=== PATIENT | male | born 1960 | race Caucasian/White ===

== ENCOUNTER 2020-05-19 17:44 | Inpatient (IN) | payer BC, SELFPAY ==
[2020-05-19 18:15] LABS: #Lymphocytes 0.7 thou/uL (1.20-3.40); #Monocytes 0.7 thou/uL (0.11-0.59); #Neutrophils 4.8 thou/uL (1.40-6.50); %Basophils 0.1 % (0.0-1.0); %Eosinophils 0.5 % (0.0-10.0); %Lymphocytes 11.2 % (21.0-51.0); %Monocytes 10.5 % (0.0-10.0); %Neutrophils 77.7 % (42.0-75.0); Hemoglobin 14.8 g/dL (14.0-18.0); Mean Corpuscular HGB CONC 34.4 g/dL (32.0-36.0); Mean Corpuscular Hemoglobin 33.6 pg (27.0-31.0); Mean Corpuscular Volume 97.7 fL (78.0-98.0); Mean Platelet Volume 8.3 fL (7.4-10.4); Platelet Count 129 thou/uL (130-400); RBC Distribution Width 12.6 % (11.5-14.5); Red Blood Cell (RBC) Count 4.41 mill/uL (4.70-6.10); White Blood Cell (WBC) Count 6.2 thou/uL (4.8-10.8)
--- NOTE | 2020-05-19 18:23 | RAD ---
RADIOGRAPH CHEST 1 VIEW: DATE: 05/19/2020 HISTORY: 59-year-old male with dyspnea FINDINGS: There are no airspace densities, pulmonary edema, pneumothorax, or cardiomegaly. The lateral costophr enic angles are sharp. IMPRESSION: No acute cardiopulmonary findings.
[2020-05-19 18:37] LABS: ALT (SGPT) 38 U/L (8-55); AST (SGOT) 54 U/L (5-34); Albumin 3.5 g/dL (3.4-4.8); Alkaline Phosphatase 91 U/L (40-110); Anion Gap 16 mmol/L (10-20); BUN (Urea Nitrogen) 5 mg/dL (8.4-25.7); Bilirubin, Total 1.3 mg/dL (0.2-1.2); Calc. Creatinine Clearance 0 mL/min (70-130); Carbon Dioxide 29 mmol/L (23-31); Chloride 84 mmol/L (98-107); Globulin 3.6 g/dL (2.4-3.5); Glucose 98 mg/dL (80-115); Protein, Total 7.1 g/dL (5.8-8.1); Sodium 125 mmol/L (136-145)
[2020-05-19] MEDS ORDERED: Ondansetron ODT 4 MG TAB PO PRN (19:59)
[2020-05-19] MEDS ORDERED: HYDROcodone/Acetaminophen 7.5/325 mg Tablet PO PRN (19:59)
[2020-05-19] MEDS ORDERED: Bisacodyl 5 MG TAB PO PRN (19:59)
[2020-05-19] MEDS ORDERED: Furosemide 40 MG/4 ML VIAL SLOW IVP SCH (20:15)
--- NOTE | 2020-05-19 20:22 | PDOC.HHP ---
Hospitalist HPI leg swelling and SOB History of Present Illness: 59 yr old male with pmhx of atrial fib , HTN , non adherence with therapy and follow up with PCP and previously on ELiquis but has not taken since over 1 year after losing insurance and job , presented to ER today after bring bough by sister for increasing swelling and discoloration of lower legs but more over LLE . He states symptoms being ongoing for months , he admit to exertional dysonea. He denies being on multiple meds and evaluated by cardiology in the past . He describe regular daily beer intake , drinks multiple cans and unable to tell ho much , he also drinks lots of water . He recalls negative cardiac cath many years ago . No chest pain , no hx of alcohol related seizures, no recent falls , no fever or chills . 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 hand digit FHx: Mother with COPD Social: lives alone , unemployed since last year -functional at baseline - more of sedentary lifestyle now -daily alcohol drinker -tobacco use - 1 pack /day Hospitalist HPI ROS Constitutional: reports: weakness Eyes: denies: pain, vision change, conjunctivae inflammation, eyelid inflammation, redness, other ENT: denies: ear pain, ear discharge, nose pain, nose discharge, nose congestion, mouth pain, mouth swelling, throat pain, throat swelling, other Respiratory: reports: cough, shortness of breath, SOB with excertion Cardiovascular: reports: palpitations, orthopnea Gastrointestinal: denies: nausea, vomiting, abdominal pain, diarrhea, constipation, melena, hematochezia, other Genitourinary: denies: dysuria, frequency, incontinence, hematuria, retention, other Musculoskeletal: reports: leg pain Neurological: denies: weakness, numbness, incoordination, change in speech, confusion, seizures, other Hospitalist Exam General - other findings: obese male , calm , NAD Eye: PERRL, anicteric sclera ENT: normocephalic atraumatic, no oropharyngeal lesions, moist mucosa Neck: supple, symmetric, no JVD Heart: no murmur, normal peripheral pulses, irregular Respiratory: no rales, normal chest expansion, normal percussion, wheezes Gastrointestinal: soft, non-tender, non-distended, no hepatomegaly Extremities: no cyanosis, 1+ LE edema Extremities - other findings: right > left , darkish hue to LE Skin: normal turgor Neurological: cranial nerve grossly intact, normal sensation to touch, no focal deficits Musculoskeletal: normal tone, normal strength, no muscle wasting Psychiatric: normal affect, normal behavior, oriented to time Hospitalist Results Result Diagrams: 05/19/20 17:58 05/19/20 17:58 Lab results: Laboratory Last Values WBC 6.2 thou/uL (4.8-10.8) 05/19/20 17:58 RBC 4.41 mill/uL (4.70-6.10) L 05/19/20 17:58 Hgb 14.8 g/dL (14.0-18.0) 05/19/20 17:58 Hct 43.1 % (42.0-52.0) 05/19/20 17:58 MCV 97.7 fL (78.0-98.0) 05/19/20 17:58 MCH 33.6 pg (27.0-31.0) H 05/19/20 17:58 MCHC 34.4 g/dL (32.0-36.0) 05/19/20 17:58 RDW 12.6 % (11.5-14.5) 05/19/20 17:58 Plt Count 129 thou/uL (130-400) L 05/19/20 17:58 MPV 8.3 fL (7.4-10.4) 05/19/20 17:58 Neutrophils % 77.7 % (42.0-75.0) H 05/19/20 17:58 Lymphocytes % 11.2 % (21.0-51.0) L 05/19/20 17:58 Monocytes % 10.5 % (0.0-10.0) H 05/19/20 17:58 Eosinophils % 0.5 % (0.0-10.0) 05/19/20 17:58 Basophils % 0.1 % (0.0-1.0) 05/19/20 17:58 Neutrophils # 4.8 thou/uL (1.40-6.50) 05/19/20 17:58 Lymphocytes # 0.7 thou/uL (1.20-3.40) L 05/19/20 17:58 Monocytes # 0.7 thou/uL (0.11-0.59) H 05/19/20 17:58 Eosinophils # 0.0 thou/uL (0.0-0.7) 05/19/20 17:58 Basophils # 0.0 thou/uL (0.0-0.2) 05/19/20 17:58 Sodium 125 mmol/L (136-145) L 05/19/20 17:58 Potassium 4.0 mmol/L (3.5-5.1) 05/19/20 17:58 Chloride 84 mmol/L (98-107) L 05/19/20 17:58 Carbon Dioxide 29 mmol/L (23-31) 05/19/20 17:58 Anion Gap 16 mmol/L (10-20) 05/19/20 17:58 BUN 5 mg/dL (8.4-25.7) L 05/19/20 17:58 Creatinine 0.75 mg/dL (0.7-1.3) 05/19/20 17:58 Estimated GFR (MDRD) Greater than 90 05/19/20 17:58 Glucose 98 mg/dL (80-115) 05/19/20 17:58 Calcium 9.0 mg/dL (7.8-10.44) 05/19/20 17:58 Total Bilirubin 1.3 mg/dL (0.2-1.2) H 05/19/20 17:58 AST 54 U/L (5-34) H 05/19/20 17:58 ALT 38 U/L (8-55) 05/19/20 17:58 Alkaline Phosphatase 91 U/L (40-110) 05/19/20 17:58 Troponin I 0.015 ng/mL (< 0.028) 05/19/20 17:58 B-Natriuretic Peptide 389.5 pg/mL (0-100) H 05/19/20 17:58 Serum Total Protein 7.1 g/dL (5.8-8.1) 05/19/20 17:58 Albumin 3.5 g/dL (3.4-4.8) 05/19/20 17:58 Globulin 3.6 g/dL (2.4-3.5) H 05/19/20 17:58 Albumin/Globulin Ratio 1.0 g/dL (1.2-2.2) L 05/19/20 17:58 Hospitalist H&P A/P (1) COPD (chronic obstructive pulmonary disease) with acute bronchitis Code(s): J44.0 - CHR OBSTRUCTIVE PULMON DISEASE WITH (ACUTE) LOWER RESP INFCT; J20.9 - ACUTE BRONCHITIS, UNSPECIFIED Status: Acute (2) Leg edema Code(s): R60.0 - LOCALIZED EDEMA Status: Acute (3) Left leg cellulitis Code(s): L03.116 - CELLULITIS OF LEFT LOWER LIMB Status: Acute (4) Tobacco abuse Code(s): Z72.0 - TOBACCO USE Status: Acute (5) Alcohol abuse Code(s): F10.10 - ALCOHOL ABUSE, UNCOMPLICATED Status: Acute (6) Atrial fibrillation Code(s): I48.91 - UNSPECIFIED ATRIAL FIBRILLATION Status: Acute Plan: # Atrial fib - with RVR- chronic -will restart Eliquis an -start Cardizem and coreg - follow mg and TSH -possible of coverage of Eliquis discussed with patient and fmialy but sister s torres they will be able to cover the meds - place in tele for now # COPD- start duonebs , steroids and empricla abx -tobbaco cessation advised - start nicotine patch # Alcohol use history - monitor for withdrawal -start librium scheduled # Hyponatrmeia - obtain urine osm/sodium/serum osm -will consult renal team - start NS , salt tabs - dose lasix to increase free water excretion - may be due to hypotonic fluid loading from alcohol use # DVT prop - obtain LE doppler to r/o DVT - start eliquis # Advance directive -full code
--- NOTE | 2020-05-19 21:35 | ULT ---
ULTRASOUND DOPPLER DUPLEX VENOUS BILATERAL LOWER EXTREMITIES: DATE: 05/19/2020 HISTORY: 59-year-old male with bilateral lower extremity swelling TECHNIQUE: Grayscale, color-flow, and spectral analysis, of major veins of bilateral lower extremities. FINDINGS: There is demonstration of blood flow with normal compressibility, of the bilateral common femoral, pr ofunda femoral, greater saphenous, femoral, popliteal, and posterior tibial, veins. There is soft tissue edema in the bilateral calves. IMPRESSION: 1. No deep venous thrombosis of bilateral lower extremities. 2. Bilateral leg edema
[2020-05-19] MEDS ORDERED: Famotidine 20 MG TAB ONE (21:37)
[2020-05-19] MEDS ORDERED: cefTRIAXone\\ROCEPHIN 1 GM VIAL ONE (21:38)
[2020-05-19] MEDS ORDERED: Furosemide 40 MG/4 ML VIAL ONE (21:38)
[2020-05-19] MEDS: Bupropion 150 MG SR TAB PO SCH (22:04)
[2020-05-19] MEDS: Apixaban 5 MG TAB PO SCH (22:04)
[2020-05-19] MEDS: Nicotine 21 MG PATCH TD SCH (22:04)
[2020-05-19] MEDS: Carvedilol 6.25 MG TAB PO SCH (22:05)
[2020-05-19] MEDS: cefTRIAXone\\ROCEPHIN 1 GM in Sodium Chloride 0.9% 100 ML IVPB SCH (22:05)
[2020-05-19] MEDS: Famotidine 20 MG TAB PO SCH (22:05)
[2020-05-19] MEDS: Sodium Chloride 1 GM TAB PO SCH (22:06)
[2020-05-20 02:58] LABS: SARS-CoV-2 PCR by NAA Not Detected (NotDetected)
[2020-05-20] MEDS ORDERED: Magnesium 2 GM/50 ML BAG (IN WATER) ONE ×2 (03:47→04:43)
[2020-05-20] MEDS: Magnesium 2 GM/50 ML 2 GM in Premix Bag 1 BAG IVPB SCH ×2 (04:09→04:49)
[2020-05-20 04:38] LABS: Band 2 % (5-11); Eosinophils 1 % (0-10); Hemoglobin 14.1 g/dL (14.0-18.0); Lymphocytes 8 % (21-51); MDiff Complete? YES; Mean Corpuscular HGB CONC 33.9 g/dL (32.0-36.0); Mean Corpuscular Hemoglobin 33.2 pg (27.0-31.0); Mean Platelet Volume 8.1 fL (7.4-10.4); Monocytes 13 % (0-10); Neutrophil 75 % (42-75); Platelet Count 131 thou/uL (130-400); Platelet Morphology Comment Appears Adequate; RBC Distribution Width 12.6 % (11.5-14.5); Reactive Lymphocytes 1 % (0-10); Red Blood Cell (RBC) Count 4.25 mill/uL (4.70-6.10); White Blood Cell (WBC) Count 6.2 thou/uL (4.8-10.8)
[2020-05-20 04:50] LABS: Anion Gap 15 mmol/L (10-20); BUN (Urea Nitrogen) 6 mg/dL (8.4-25.7); Calc. Creatinine Clearance 0 mL/min (70-130); Calcium 8.8 mg/dL (7.8-10.44); Carbon Dioxide 27 mmol/L (23-31); Chloride 87 mmol/L (98-107); Glucose 104 mg/dL (80-115); Potassium 3.4 mmol/L (3.5-5.1); Sodium 126 mmol/L (136-145)
[2020-05-20] MEDS ORDERED: Aspirin Chewable 81 MG TAB ONE (08:47)
[2020-05-20] MEDS ORDERED: Famotidine 20 MG TAB ONE (08:47)
[2020-05-20] MEDS ORDERED: predniSONE 20 MG TAB ONE (08:50)
[2020-05-20] MEDS ORDERED: Furosemide 40 MG TAB ONE (08:50)
[2020-05-20] MEDS: Furosemide 20 MG TAB PO SCH ×2 (09:10→17:06)
[2020-05-20] MEDS: Famotidine 20 MG TAB PO SCH ×2 (09:10→21:55)
[2020-05-20] MEDS: predniSONE 20 MG TAB PO SCH (09:10)
[2020-05-20] MEDS: Aspirin Chewable 81 MG TAB PO SCH (09:10)
[2020-05-20] MEDS: Carvedilol 6.25 MG TAB PO SCH (09:43)
[2020-05-20] MEDS: Apixaban 5 MG TAB PO SCH ×2 (09:43→21:54)
[2020-05-20] MEDS: Bupropion 150 MG SR TAB PO SCH ×2 (09:43)
[2020-05-20] MEDS: Sodium Chloride 1 GM TAB PO SCH ×3 (09:44→21:55)
--- NOTE | 2020-05-20 14:52 | CON ---
DATE OF CONSULTATION: HISTORY OF PRESENT ILLNESS: Stewart Chatterjee is a 59 year old white male, who has been seen and treated by Dr. Bonilla in the past. Apparently one year ago, he was found to be in atrial fibrillation and underwent electrical cardioversion. He then lost his insurance after he was laid off and takes his medications very irregularly. He was on flecainide, so I assumed that he had normal left ventricular function in the past. He comes to the emergency room complaining of increased shortness of breath, feels increased peripheral edema. He denies any palpitations or chest discomfort. PAST MEDICAL HISTORY: Hypertension. No history of diabetes or hypercholesterolemia. MEDICATIONS: The medicines that he was taking were, 1. Metoprolol 100 daily. 2. Eliquis 5 mg b.i.d. 3. Amlodipine 10 mg daily. 4. Flecainide 100 mg b.i.d. When asked about each medicine, he takes the metoprolol once every several days, the Eliquis only one daily, amlodipine once every several days, and the flecainide once every 2 or 3 days. ALLERGIES: NONE TO MEDICATIONS. OPERATIONS: Amputation of the left 4th digit from his hand, history of ORIF after broken left hand. SOCIAL HISTORY: Continues to smoke one pack per day. He drinks, but is very evasive about how much he drinks. FAMILY HISTORY: Unremarkable. REVIEW OF SYSTEMS: Otherwise unremarkable. PHYSICAL EXAMINATION: VITAL SIGNS: Blood pressure 124/95; pulse of 101, irregularly irregular. At the time of presentation, his blood pressure was up to 156/118. HEENT: PERRL. NECK: Supple. CHEST: Reveals expiratory wheezing. CARDIOVASCULAR: S1 and S2 normal without any S3, S4, or murmurs. The heart is irregularly irregular. ABDOMEN: Obese. Normal bowel sounds. No tenderness. EXTREMITIES: Revealed 2+ pretibial edema with stasis changes. NEUROLOGIC: Grossly intact. LABORATORY DATA: EKG revealed atrial fibrillation with rate of 131 per minute and right bundle-branch block. Chest x-ray revealed no acute findings. Lower extremity venous ultrasound reveals no evidence of DVT. Hemoglobin 14.1, hematocrit 41.7, white count 6200, platelets 131,000. Sodium 126, potassium 3.4, chloride 87, BUN 6, creatinine 0.65. BNP 467.5. Troponin I is normal. TSH is normal. IMPRESSION: 1. Atrial fibrillation with fast ventricular response. 2. History of cardioversion for atrial fibrillation approximately one year ago. He was on flecainide, but only takes this once every several days and I assume that he had normal left ventricular function in the past. 3. Congestive heart failure, definite diastolic component. With his chronic rapid ventricular response, his left ventricular systolic function needs to be reassessed. 4. Hypertension. 5. Smoker. 6. Noncompliance with medications. PLAN: The patient will be resumed on Eliquis 5mg b.i.d. He will be placed placed on carvedilol for better rate control and diuretics. Echocardiogram will be performed to reassess left ventricular function. The patient's fluid needs to be limited to 1500 mL per day. We will continue to follow the patient with you. Job ID: [id number] MTDD
[2020-05-20 15:39] LABS: Bacteria/HPF None Seen HPF (None Seen); Bilirubin Negative (Negative); Blood, Urine Negative (Negative); Clarity Clear (Clear); Glucose, Urine (Dipstick) Normal (Negative); Ketone, Urine 10 mg/dL (Negative); Leukocyte Negative Leu/uL (Negative); Nitrite Negative (Negative); Protein, Urine (Dipstick) 50 mg/dL (Neg-Trace); RBC/HPF 0-3 HPF (0-3); Specific Gravity, Urine 1.008 (1.002-1.036); Squamous Epithelial None Seen HPF (0-3); Urobilinogen Greater than 12 mg/dL (Less than 2); WBC/HPF 0-3 HPF (0-3)
--- NOTE | 2020-05-20 18:48 | CON ---
DATE OF CONSULTATION: CONSULTING PHYSICIAN: Mino Coburn MD. REQUESTING PHYSICIAN: Dr. Cardona. REASON FOR CONSULTATION: Hyponatremia. IMPRESSION: 1. Hyponatremia. This is likely dilutional hyponatremia in the context of congestive heart failure/hypervolemia. However, I cannot completely rule out SIADH and other potential hyponatremic causes. 2. Congestive heart failure exacerbation. PLAN: Urine chemistry to evaluate what type of hyponatremia and treat accordingly. Therefore, now we will stay with fluid restriction and diuretic management for CHF symptoms. HISTORY OF PRESENT ILLNESS: History is that of 59-year-old gentleman with history of atrial fibrillation, hypertension, who presented to the hospital with worsening swelling and discoloration of the legs and shortness of breath. The patient has been diagnosed with CHF exacerbation. The patient does admit to drinking which raises the possibility of beer potomania as a component of this hyponatremia. PAST MEDICAL HISTORY: Significant for atrial fibrillation, hypertension, possible congestive heart failure. MEDICATIONS: Reviewed as documented on [employer]. SOCIAL HISTORY: Unemployed, living alone, daily alcohol use. REVIEW OF SYSTEMS: As documented in the body of history. All other systems reviewed and found not to be significantly related to present illness. PHYSICAL EXAMINATION: GENERAL: The patient noted with the following vital signs; afebrile, temperature 97.5, pulse 105, respiratory rate of 15, O2 saturation of 97%, blood pressure 147/91. HEENT: Unremarkable. CARDIOVASCULAR SYSTEM: First and second heart sounds were heard. RESPIRATORY SYSTEM: Clear to auscultation. DIGESTIVE SYSTEM: Revealed an obese abdomen. EXTREMITIES: Showed peripheral edema. SKIN: Shows some discoloration in the lower extremity. SUMMARY: A 59-year-old gentleman who presented here with worsening body swelling and shortness of breath, noted to be hyponatremic, likely in the context of dilutional hyponatremia, either from CHF or from beer potomania, still SIADH has not been ruled out. Job ID: [id number]
--- NOTE | 2020-05-20 19:33 | PDOC.HOSPP ---
- Subjective Encounter Date: 05/20/20 Encounter Time: 19:30 Subjective: f/u for A-fib RVR/COPD/CHF and medical non-compliance treated with Lasix/Coreg/Eliquis. - Objective Vital Signs & Weight: Vital Signs (12 hours) Temp Pulse Resp BP BP Pulse Ox 05/20/20 15:50 97 05/20/20 15:38 97.5 F L 105 H 15 147/91 H 97 05/20/20 09:43 124/95 H 05/20/20 08:13 101 H 18 96 Weight Weight 314 lb 11.2 oz Result Diagrams: 05/20/20 04:21 05/20/20 04:21 Additional Labs: Laboratory Tests 05/19/20 05/19/20 05/19/20 17:56 17:58 17:58 Plt Count Sodium 125 L Magnesium Total Bilirubin 1.3 H B-Natriuretic Peptide 389.5 H TSH 3rd Generation 1.3970 SARS-CoV-2 RNA (JR) 05/19/20 05/19/20 05/19/20 17:58 20:39 22:15 Plt Count 129 L Sodium Magnesium 1.5 L Total Bilirubin B-Natriuretic Peptide TSH 3rd Generation SARS-CoV-2 RNA (JR) Not Detected 05/20/20 04:21 Plt Count Sodium Magnesium Total Bilirubin B-Natriuretic Peptide 467.5 H TSH 3rd Generation SARS-CoV-2 RNA (JR) Radiology Reviewed by me: Yes (PCXR - no acute changes) EKG Reviewed by me: Yes (Tele - A-fib in 115's) Hospitalist ROS - Medication Medications: Active Medications Generic Name Dose Route Start Last Admin Trade Name Freq PRN Reason Stop Dose Admin Albuterol/Ipratropium 3 ml 05/20/20 01:00 05/20/20 14:39 Ipratropium/Albuterol Sulfate 3 Ml Neb NEB 3 ml [id number] BAIRON Administration Apixaban 5 mg 05/19/20 21:00 05/20/20 09:43 Apixaban 5 Mg Tab PO 5 mg BID BAIRON Administration Aspirin 81 mg 05/20/20 09:00 05/20/20 09:10 Aspirin Chewable 81 Mg Tab PO 81 mg DAILY BAIRON Administration Bupropion HCl 150 mg 05/20/20 09:00 05/20/20 09:43 Bupropion 150 Mg Sr Tab PO 05/23/20 09:01 150 mg DAILY BAIRON Administration Carvedilol 6.25 mg 05/19/20 21:00 05/20/20 09:43 Carvedilol 6.25 Mg Tab PO 6.25 mg BID BAIRON Administration Chlordiazepoxide HCl 10 mg 05/19/20 21:00 05/20/20 17:06 Chlordiazepoxide Hcl 10 Mg Cap PO 10 mg TID BAIRON Administration Famotidine 20 mg 05/19/20 21:00 05/20/20 09:10 Famotidine 20 Mg Tab PO 20 mg BID BAIRON Administration Furosemide 40 mg 05/20/20 09:00 05/20/20 17:06 Furosemide 20 Mg Tab PO 40 mg 0900,1400 BAIRON Administration Ceftriaxone Sodium 1 gm/ 100 mls @ 200 mls/hr 05/19/20 21:00 05/19/20 22:05 Sodium Chloride IVPB 100 mls Q24HR BAIRON Administration Nicotine 21 mg 05/19/20 20:00 05/19/20 22:04 Nicotine 21 Mg Patch TD 21 mg Q24HR BAIRON Administration Prednisone 40 mg 05/20/20 09:00 05/20/20 09:10 Prednisone 20 Mg Tab PO 40 mg DAILY BAIRON Administration Sodium Chloride 2 gm 05/19/20 21:00 05/20/20 17:06 Sodium Chloride 1 Gm Tab PO 2 gm TID BAIRON Administration Hospitalist Exam Vitals: Vital Signs (12 hours) Temp Pulse Resp BP BP Pulse Ox 05/20/20 15:50 97 05/20/20 15:38 97.5 F L 105 H 15 147/91 H 97 05/20/20 09:43 124/95 H 05/20/20 08:13 101 H 18 96 Weight Weight 314 lb 11.2 oz General Appearance: NAD, awake alert Eye: PERRL, anicteric sclera ENT: normocephalic atraumatic, no oropharyngeal lesions Neck: supple, symmetric, no JVD, no thyromegaly, no lymphadenopathy Heart: no gallops, no rubs, normal peripheral pulses, irregular Respiratory: no tachypnea, rhonchi, wheezes Respiratory - other findings: diminished in bases Gastrointestinal: soft, non-tender, non-distended, normal bowel sounds, no palpable masses Gastrointestinal - other findings: obese Extremities: no cyanosis, no clubbing, 2+ LE edema Skin: normal turgor Neurological: cranial nerve grossly intact, no new deficit Musculoskeletal: normal tone, generalized weakness Psychiatric: normal affect, A&O x 3 Hosp A/P (1) Atrial fibrillation with RVR Code(s): I48.91 - UNSPECIFIED ATRIAL FIBRILLATION Status: Acute Plan: Rate variable, increase Coreg 12.5mg BID, Eliquis, Echo pending (2) CHF (congestive heart failure) Code(s): I50.9 - HEART FAILURE, UNSPECIFIED Status: Acute Qualifiers: Heart failure type: unspecified Plan: 2D echo pending, continue Lasix 40mg IV BID (3) Hyponatremia Code(s): E87.1 - HYPO-OSMOLALITY AND HYPONATREMIA Status: Acute Plan: Likely due to chronic ETOH abuse in combination with volume overload, IV Lasix, serial monitoring, appreciate Nephrology assistance (4) COPD exacerbation Code(s): J44.1 - CHRONIC OBSTRUCTIVE PULMONARY DISEASE W (ACUTE) EXACERBATION Status: Acute Plan: Continue Prednisone/Duonebs/Rocephin (5) Alcohol abuse Code(s): F10.10 - ALCOHOL ABUSE, UNCOMPLICATED Status: Chronic Plan: Ativan/Librium with ASE protocol, add MVI/Thiamine/Folate - Plan continue antibiotics, PT/OT, social psychologist, respiratory therapy, out of bed/ambulate Continue pulmonary support Continue Lasix IV Continue Rocephin/Prednisone/Rocephin Increase Coreg 12.5mg BID Continue Eliquis 2D echo pending AM lab: BMP, Trop
[2020-05-20] MEDS ORDERED: Carvedilol 6.25 MG TAB PO SCH (21:00)
[2020-05-20] MEDS: Nicotine 21 MG PATCH TD SCH (21:53)
[2020-05-20] MEDS: cefTRIAXone\\ROCEPHIN 1 GM in Sodium Chloride 0.9% 100 ML IVPB SCH (21:54)
[2020-05-21 05:47] LABS: Anion Gap 15 mmol/L (10-20); BUN (Urea Nitrogen) 10 mg/dL (8.4-25.7); Calc. Creatinine Clearance 199 mL/min (70-130); Calcium 8.5 mg/dL (7.8-10.44); Carbon Dioxide 29 mmol/L (23-31); Chloride 88 mmol/L (98-107); Glucose 93 mg/dL (80-115); Potassium 3.3 mmol/L (3.5-5.1); Sodium 129 mmol/L (136-145)
[2020-05-21 05:53] LABS: Troponin I 0.014 ng/mL (< 0.028)
[2020-05-21] MEDS: Multivitamin W/ Minerals 1 TAB PO SCH (07:53)
[2020-05-21] MEDS: Aspirin Chewable 81 MG TAB PO SCH (07:53)
[2020-05-21] MEDS: Apixaban 5 MG TAB PO SCH ×2 (07:53→21:56)
[2020-05-21] MEDS: Sodium Chloride 1 GM TAB PO SCH ×2 (07:53→14:53)
[2020-05-21] MEDS: Folic Acid 1 MG TAB PO SCH (07:54)
[2020-05-21] MEDS: predniSONE 20 MG TAB PO SCH (07:54)
[2020-05-21] MEDS: Bupropion 150 MG SR TAB PO SCH (07:54)
[2020-05-21] MEDS: Carvedilol 6.25 MG TAB PO SCH ×2 (07:54→16:24)
[2020-05-21] MEDS: Furosemide 20 MG TAB PO SCH ×2 (07:56→14:53)
[2020-05-21] MEDS: Famotidine 20 MG TAB PO SCH ×2 (07:56→21:56)
[2020-05-21] MEDS: Thiamine 100 MG TAB PO SCH (07:56)
[2020-05-21] MEDS ORDERED: FLU VACC QS2020-21(6MOS UP)/PF 60 MCG/0.5 ML SYRINGE IM ONE (09:00)
--- NOTE | 2020-05-21 10:14 | PDOC.HOSPP ---
- Subjective Encounter Date: 05/21/20 Encounter Time: 10:05 Subjective: f/u for A-fib RVR/CHF/medical non-compliance receiving Coreg/Eliquis. Overall feels better and less SOB. - Objective Vital Signs & Weight: Vital Signs (12 hours) Temp Pulse Resp BP Pulse Ox 05/21/20 08:00 94 L 05/21/20 07:47 98.0 F 103 H 20 122/78 94 L 05/21/20 06:59 102 H 14 05/21/20 03:50 98.4 F 116 H 20 104/67 93 L 05/21/20 00:00 122 H 05/20/20 23:19 95 Weight Weight 311 lb 3.2 oz I&O: 05/20/20 05/21/20 05/22/20 06:59 06:59 06:59 Intake Total 480 Balance 480 Result Diagrams: 05/20/20 04:21 05/21/20 05:01 Additional Labs: Laboratory Tests 05/19/20 05/19/20 05/19/20 17:56 17:58 17:58 Plt Count Sodium 125 L Potassium Magnesium Total Bilirubin 1.3 H B-Natriuretic Peptide 389.5 H TSH 3rd Generation 1.3970 SARS-CoV-2 RNA (JR) 05/19/20 05/19/20 05/19/20 17:58 20:39 22:15 Plt Count 129 L Sodium Potassium Magnesium 1.5 L Total Bilirubin B-Natriuretic Peptide TSH 3rd Generation SARS-CoV-2 RNA (JR) Not Detected 05/20/20 05/20/20 04:21 04:21 Plt Count Sodium 126 L Potassium 3.4 L Magnesium Total Bilirubin B-Natriuretic Peptide 467.5 H TSH 3rd Generation SARS-CoV-2 RNA (JR) Radiology Reviewed by me: Yes (2D echo - pending) EKG Reviewed by me: Yes (Tele - A-fib in 100's) Hospitalist ROS - Medication Medications: Active Medications Generic Name Dose Route Start Last Admin Trade Name Freq PRN Reason Stop Dose Admin Albuterol/Ipratropium 3 ml 05/20/20 01:00 05/21/20 06:59 Ipratropium/Albuterol Sulfate 3 Ml Neb NEB 3 ml [id number] BAIRON Administration Apixaban 5 mg 05/19/20 21:00 05/21/20 07:53 Apixaban 5 Mg Tab PO 5 mg BID BAIRON Administration Aspirin 81 mg 05/20/20 09:00 05/21/20 07:53 Aspirin Chewable 81 Mg Tab PO 81 mg DAILY BAIRON Administration Bupropion HCl 150 mg 05/20/20 09:00 05/21/20 07:54 Bupropion 150 Mg Sr Tab PO 05/23/20 09:01 150 mg DAILY BAIRON Administration Carvedilol 12.5 mg 05/21/20 08:00 05/21/20 07:54 Carvedilol 6.25 Mg Tab PO 12.5 mg BID-WM BAIRON Administration Chlordiazepoxide HCl 10 mg 05/19/20 21:00 05/21/20 07:57 Chlordiazepoxide Hcl 10 Mg Cap PO 10 mg TID BAIRON Administration Famotidine 20 mg 05/19/20 21:00 05/21/20 07:56 Famotidine 20 Mg Tab PO Not Given BID BAIRON Folic Acid 1 mg 05/21/20 09:00 05/21/20 07:54 Folic Acid 1 Mg Tab PO 1 mg DAILY BAIRON Administration Furosemide 40 mg 05/20/20 09:00 05/21/20 07:56 Furosemide 20 Mg Tab PO 40 mg 0900,1400 BAIRON Administration Ceftriaxone Sodium 1 gm/ 100 mls @ 200 mls/hr 05/19/20 21:00 05/20/20 21:54 Sodium Chloride IVPB 100 mls Q24HR BAIRON Administration Iron/Minerals/Multivitamins 1 tab 05/21/20 09:00 05/21/20 07:53 Multivitamin W/ Minerals 1 Tab PO 1 tab DAILY BAIRON Administration Nicotine 21 mg 05/19/20 20:00 05/20/20 21:53 Nicotine 21 Mg Patch TD 21 mg Q24HR BAIRON Administration Prednisone 40 mg 05/20/20 09:00 05/21/20 07:54 Prednisone 20 Mg Tab PO 40 mg DAILY BAIRON Administration Sodium Chloride 2 gm 05/19/20 21:00 05/21/20 07:53 Sodium Chloride 1 Gm Tab PO 2 gm TID BAIRON Administration Thiamine HCl 100 mg 05/21/20 09:00 05/21/20 07:56 Thiamine 100 Mg Tab PO 100 mg DAILY BAIRON Administration Hospitalist Exam Vitals: Vital Signs (12 hours) Temp Pulse Resp BP Pulse Ox 05/21/20 08:00 94 L 05/21/20 07:47 98.0 F 103 H 20 122/78 94 L 05/21/20 06:59 102 H 14 05/21/20 03:50 98.4 F 116 H 20 104/67 93 L 05/21/20 00:00 122 H 05/20/20 23:19 95 Weight Weight 311 lb 3.2 oz General Appearance: NAD, awake alert Eye: PERRL, anicteric sclera ENT: normocephalic atraumatic, no oropharyngeal lesions Neck: supple, symmetric, no JVD, no thyromegaly, no lymphadenopathy Heart: no gallops, no rubs, normal peripheral pulses, irregular Heart - other findings: S1, S2 tachycardic Respiratory: tachypneic, wheezes Respiratory - other findings: diminished bilat, occ rhonchi Gastrointestinal: soft, non-tender, non-distended, normal bowel sounds, no palpable masses, no hepatomegaly Extremities: no cyanosis, 2+ LE edema Skin: normal turgor Neurological: cranial nerve grossly intact, no new deficit Musculoskeletal: normal tone, generalized weakness Psychiatric: normal affect, A&O x 3 Hosp A/P (1) Atrial fibrillation with RVR Code(s): I48.91 - UNSPECIFIED ATRIAL FIBRILLATION Status: Acute Plan: Rate variable, continue Coreg 12.5mg BID/Eliquis (2) CHF (congestive heart failure) Code(s): I50.9 - HEART FAILURE, UNSPECIFIED Status: Acute Qualifiers: Heart failure type: unspecified Plan: Suspect diastolic component, continue Lasix 40mg BID, serial I/O's, Daily weight, 2D echo pending (3) Hyponatremia Code(s): E87.1 - HYPO-OSMOLALITY AND HYPONATREMIA Status: Acute Plan: Improved, continue Na+ supplements, serial Na+ monitoring (4) COPD exacerbation Code(s): J44.1 - CHRONIC OBSTRUCTIVE PULMONARY DISEASE W (ACUTE) EXACERBATION Status: Acute (5) Alcohol abuse Code(s): F10.10 - ALCOHOL ABUSE, UNCOMPLICATED Status: Chronic - Plan continue antibiotics, PT/OT, social worker aide, respiratory therapy Continue pulmonary support Continue Lasix 40mg po BID Continue Rocephin/Prednisone Duonebs q4h Increase Coreg 12.5mg BID Continue Eliquis 2D echo pending AM lab: BMP, Mg++
[2020-05-21] MEDS ORDERED: Potassium Chloride 20 MEQ TAB PO SCH (10:15)
--- NOTE | 2020-05-21 14:54 | RAD ---
Exam: XR Knee Rt 2 View HISTORY: Right knee pain and weakness. COMPARISON: None FINDINGS: Tricompartment osteophytosis is present. Narrowing of the medial joint compartment is present. No fra cture or dislocation is seen. A moderate suprapatellar joint effusion is noted. Vascular calcifications are seen posterior to the knee. IMPRESSION: 1. Osteoarthritis. 2. No acute osseous and metallic. 3. Moderate size joint effusion.
--- NOTE | 2020-05-21 14:56 | RAD ---
Exam: XR Knee Lt 2 View HISTORY: Pain and weakness left knee. COMPARISON: None FINDINGS: There is tricompartment osteophytosis. There is narrowing of the medial joint compartment. There does appear to be slight lateral subluxation of the tibia with respect to the femoral condyles. No fracture or dislocation is identified. A moderate-sized suprapatellar joint effusion is present. Vascular calcifications are seen posterior to the knee. Subcutaneous edema is seen about the knee. IMPRESSION: 1. Osteoarthritis greatest involving the medial joint compartment. 2. Moderate-sized joint effusion.
[2020-05-21] MEDS: Potassium Chloride 20 MEQ TAB PO SCH (16:24)
[2020-05-21] MEDS ORDERED: Amiodarone 150 MG in Dextrose 5% in Water 100 ML IVPB SCH (18:15)
--- NOTE | 2020-05-21 18:49 | PRG ---
DATE OF SERVICE: 05/21/2020 SUBJECTIVE: The patient is seen and examined with no new complaint. OBJECTIVE: VITAL SIGNS: Noted with the following vital signs; afebrile, temperature 98.2, pulse respiratory rate of 18, blood pressure 122/77. HEENT: Unremarkable. CARDIOVASCULAR SYSTEM: First and second heart sounds were heard. RESPIRATORY SYSTEM: Clear to auscultation. DIGESTIVE SYSTEM: Revealed a benign abdomen. EXTREMITIES: No peripheral edema. SKIN: No new gross rash. LYMPHATICS: No peripheral lymphadenopathy. LABORATORY INVESTIGATION: Sodium 129 with a potassium of 3.3. IMPRESSION: Hyponatremia, query cause, possibly dilutional in the context of congestive heart failure, cannot rule out syndrome of inappropriate secretion of antidiuretic hormone and beer potomania. PLAN: 1. The patient's urine osmolality and sodium . We will discuss with the nursing staff. 2. Continue current management. 3. Replete potassium. Job ID: [id number]
[2020-05-21] MEDS: Amiodarone 450 MG in Dextrose 5% in Water 250 ML IVPB SCH (19:51)
[2020-05-21] MEDS: Nicotine 21 MG PATCH TD SCH (21:56)
[2020-05-21] MEDS: cefTRIAXone\\ROCEPHIN 1 GM in Sodium Chloride 0.9% 100 ML IVPB SCH (21:56)
[2020-05-22] MEDS: Amiodarone 450 MG in Dextrose 5% in Water 250 ML IVPB SCH (04:31)
[2020-05-22 05:28] LABS: Anion Gap 13 mmol/L (10-20); BUN (Urea Nitrogen) 16 mg/dL (8.4-25.7); Calc. Creatinine Clearance 189 mL/min (70-130); Calcium 8.6 mg/dL (7.8-10.44); Carbon Dioxide 29 mmol/L (23-31); Chloride 91 mmol/L (98-107); Glucose 104 mg/dL (80-115); Magnesium 1.6 mg/dL (1.6-2.6); Potassium 3.4 mmol/L (3.5-5.1); Sodium 130 mmol/L (136-145)
[2020-05-22] MEDS ORDERED: Tolvaptan 15 MG TAB PO SCH (08:15)
[2020-05-22] MEDS ORDERED: TOLVAPTAN 30 MG PO SCH (08:30)
[2020-05-22] MEDS: Aspirin Chewable 81 MG TAB PO SCH (09:00)
[2020-05-22] MEDS ORDERED: TOLVAPTAN 30 MG TAB PO SCH (09:00)
[2020-05-22] MEDS: Bupropion 150 MG SR TAB PO SCH (09:00)
[2020-05-22] MEDS: Furosemide 20 MG TAB PO SCH ×2 (09:00→16:39)
[2020-05-22] MEDS: predniSONE 20 MG TAB PO SCH (09:00)
[2020-05-22] MEDS: Potassium Chloride 20 MEQ TAB PO SCH ×2 (09:01→16:39)
[2020-05-22] MEDS: Carvedilol 6.25 MG TAB PO SCH ×2 (09:01→16:39)
[2020-05-22] MEDS: Folic Acid 1 MG TAB PO SCH (09:01)
[2020-05-22] MEDS: Lisinopril 2.5 MG TAB PO SCH (09:02)
[2020-05-22] MEDS: Famotidine 20 MG TAB PO SCH ×2 (09:02→20:42)
[2020-05-22] MEDS: Thiamine 100 MG TAB PO SCH (09:02)
[2020-05-22] MEDS: Multivitamin W/ Minerals 1 TAB PO SCH (09:02)
[2020-05-22] MEDS: Apixaban 5 MG TAB PO SCH ×2 (09:02→20:42)
[2020-05-22] MEDS ORDERED: Digoxin 0.5 MG/2 ML AMP SLOW IVP SCH (09:15)
--- NOTE | 2020-05-22 09:17 | PDOC.HOSPP ---
- Subjective Encounter Date: 05/22/20 Encounter Time: 09:05 Subjective: f/u for CHF/A-fib RVR/ETOH abuse/Hyponatremia receiving Lasix/Amiodarone/Coreg/Eliquis. Overall feels better and SOB improved. - Objective Vital Signs & Weight: Vital Signs (12 hours) Temp Pulse Resp BP BP Pulse Ox 05/22/20 09:02 114 H 05/22/20 09:01 107/73 05/22/20 08:27 18 95 05/22/20 04:00 98.2 F 114 H 21 H 132/98 H 96 05/22/20 00:05 95 Weight Weight 311 lb 3.2 oz I&O: 05/21/20 05/22/20 05/23/20 06:59 06:59 06:59 Intake Total 480 960 Output Total 200 Balance 480 760 Result Diagrams: 05/20/20 04:21 05/22/20 04:05 Additional Labs: Laboratory Tests 05/19/20 05/19/20 05/19/20 17:56 17:58 17:58 Plt Count Sodium 125 L Potassium Magnesium Total Bilirubin 1.3 H B-Natriuretic Peptide 389.5 H TSH 3rd Generation 1.3970 SARS-CoV-2 RNA (JR) 05/19/20 05/19/20 05/19/20 17:58 20:39 22:15 Plt Count 129 L Sodium Potassium Magnesium 1.5 L Total Bilirubin B-Natriuretic Peptide TSH 3rd Generation SARS-CoV-2 RNA (JR) Not Detected 05/20/20 05/20/20 05/21/20 04:21 04:21 05:01 Plt Count Sodium 126 L 129 L Potassium 3.4 L 3.3 L Magnesium Total Bilirubin B-Natriuretic Peptide 467.5 H TSH 3rd Generation SARS-CoV-2 RNA (JR) Radiology Reviewed by me: Yes (Echo - EF 35-40%, mild TR/MR; Bilat Knee x-ray - no fx, suprapatellar effus) EKG Reviewed by me: Yes (Tele - A-fib in 120's) Hospitalist ROS - Medication Medications: Active Medications Generic Name Dose Route Start Last Admin Trade Name Freq PRN Reason Stop Dose Admin Albuterol/Ipratropium 3 ml 05/20/20 01:00 05/22/20 08:27 Ipratropium/Albuterol Sulfate 3 Ml Neb NEB 3 ml [id number] BAIRON Administration Apixaban 5 mg 05/19/20 21:00 05/22/20 09:02 Apixaban 5 Mg Tab PO 5 mg BID BAIRON Administration Aspirin 81 mg 05/20/20 09:00 05/22/20 09:00 Aspirin Chewable 81 Mg Tab PO 81 mg DAILY BAIRON Administration Bupropion HCl 150 mg 05/20/20 09:00 05/22/20 09:00 Bupropion 150 Mg Sr Tab PO 05/23/20 09:01 150 mg DAILY BAIRON Administration Carvedilol 12.5 mg 05/21/20 08:00 05/22/20 09:01 Carvedilol 6.25 Mg Tab PO 12.5 mg BID- BAIRON Administration Chlordiazepoxide HCl 10 mg 05/19/20 21:00 05/22/20 08:59 Chlordiazepoxide Hcl 10 Mg Cap PO 10 mg TID BAIRON Administration Famotidine 20 mg 05/19/20 21:00 05/22/20 09:02 Famotidine 20 Mg Tab PO 20 mg BID BAIRON Administration Folic Acid 1 mg 05/21/20 09:00 05/22/20 09:01 Folic Acid 1 Mg Tab PO 1 mg DAILY BAIRON Administration Furosemide 40 mg 05/20/20 09:00 05/22/20 09:00 Furosemide 20 Mg Tab PO 40 mg 0900,1400 BAIRON Administration Ceftriaxone Sodium 1 gm/ 100 mls @ 200 mls/hr 05/19/20 21:00 05/21/20 21:56 Sodium Chloride IVPB 100 mls Q24HR BAIRON Administration Amiodarone HCl 450 mg/ 259 mls @ 0 mls/hr 05/21/20 18:15 05/22/20 04:31 Dextrose/Water IVPB 259 mls INF BAIRON Administration Protocol Per Protocol Iron/Minerals/Multivitamins 1 tab 05/21/20 09:00 05/22/20 09:02 Multivitamin W/ Minerals 1 Tab PO 1 tab DAILY BAIRON Administration Lisinopril 2.5 mg 05/22/20 09:00 05/22/20 09:02 Lisinopril 2.5 Mg Tab PO 2.5 mg DAILY BAIRON Administration Nicotine 21 mg 05/19/20 20:00 05/21/20 21:56 Nicotine 21 Mg Patch TD 21 mg Q24HR BAIRON Administration Potassium Chloride 40 meq 05/21/20 17:00 05/22/20 09:01 Potassium Chloride 20 Meq Tab PO 40 meq BID-WM BAIRON Administration Prednisone 40 mg 05/20/20 09:00 05/22/20 09:00 Prednisone 20 Mg Tab PO 40 mg DAILY BAIRON Administration Sodium Chloride 10 ml 05/21/20 21:00 05/22/20 09:02 Flush - Normal Saline 10 Ml Syringe IVF 10 ml Q12HR BAIRON Administration Thiamine HCl 100 mg 05/21/20 09:00 05/22/20 09:02 Thiamine 100 Mg Tab PO 100 mg DAILY BAIRON Administration Tolvaptan 15 mg 05/22/20 09:00 05/22/20 09:02 Tolvaptan 30 Mg Tab PO 05/22/20 12:00 15 mg NOW BAIRON Administration Hospitalist Exam Vitals: Vital Signs (12 hours) Temp Pulse Resp BP BP Pulse Ox 05/22/20 09:02 114 H 05/22/20 09:01 107/73 05/22/20 08:27 18 95 05/22/20 04:00 98.2 F 114 H 21 H 132/98 H 96 05/22/20 00:05 95 Weight Weight 311 lb 3.2 oz General Appearance: NAD, awake alert Eye: PERRL, anicteric sclera ENT: normocephalic atraumatic, no oropharyngeal lesions Neck: supple, symmetric, no JVD, no thyromegaly, no lymphadenopathy Heart: no gallops, no rubs, normal peripheral pulses, irregular Heart - other findings: S1, S2 tachycardic Respiratory - other findings: few exp wheezes, diminished in bases Gastrointestinal: soft, non-tender, non-distended, normal bowel sounds, no palpable masses Gastrointestinal - other findings: obese Extremities: no cyanosis, 1+ LE edema Extremities - other findings: chronic venous stasis changes to bilat LE's Skin: normal turgor Neurological: cranial nerve grossly intact, no new deficit Musculoskeletal: normal tone, normal strength Psychiatric: normal affect, A&O x 3 Hosp A/P (1) Atrial fibrillation with RVR Code(s): I48.91 - UNSPECIFIED ATRIAL FIBRILLATION Status: Acute Plan: Rate variable currently, continue Amiodarone/Coreg/Eliquis, consider cardioversion (2) CHF (congestive heart failure) Code(s): I50.9 - HEART FAILURE, UNSPECIFIED Status: Acute Qualifiers: Heart failure type: systolic Heart failure chronicity: acute on chronic Qualified Code(s): I50.23 - Acute on chronic systolic (congestive) heart failure Plan: EF 35-40% by Echo, continue Lasix/Coreg/Lisinopril/ASA (3) Hyponatremia Code(s): E87.1 - HYPO-OSMOLALITY AND HYPONATREMIA Status: Acute Plan: Improved, likely multifactorial including ETOH abuse/volume overload, continue fluid restriction, Tolvaptan, serial Na+ monitoring (4) COPD exacerbation Code(s): J44.1 - CHRONIC OBSTRUCTIVE PULMONARY DISEASE W (ACUTE) EXACERBATION Status: Acute Plan: Improved, continue pulm support, Prednisone (5) Alcohol abuse Code(s): F10.10 - ALCOHOL ABUSE, UNCOMPLICATED Status: Chronic Plan: Continue ASE, Librium, Folate/MVI/Thiamine - Plan plan discussed w/ family, continue antibiotics, PT/OT, geriatric social worker, respiratory therapy Continue pulmonary support Continue Lasix 40mg po BID Continue Rocephin/Prednisone Duonebs q4h Increase Coreg 12.5mg BID Continue Eliquis Continue Tolvaptan ? need for Cardioversion AM lab: BMP
[2020-05-22 15:13] LABS: Anion Gap 14 mmol/L (10-20); BUN (Urea Nitrogen) 16 mg/dL (8.4-25.7); Calc. Creatinine Clearance 161 mL/min (70-130); Calcium 9.4 mg/dL (7.8-10.44); Carbon Dioxide 27 mmol/L (23-31); Chloride 94 mmol/L (98-107); Glucose 163 mg/dL (80-115); Potassium 4.2 mmol/L (3.5-5.1); Sodium 131 mmol/L (136-145)
--- NOTE | 2020-05-22 19:10 | PRG ---
DATE OF SERVICE: 05/22/2020 SUBJECTIVE: The patient is seen and noted with the following vital signs. OBJECTIVE: VITAL SIGNS: Afebrile, temperature 98.8, pulse 97, respiratory rate of 16, O2 saturations of 96%, and blood pressure 142/89. HEENT: Unremarkable. CARDIOVASCULAR SYSTEM: First and second heart sounds were heard. RESPIRATORY SYSTEM: Clear to auscultation. DIGESTIVE SYSTEM: Revealed a benign abdomen with positive bowel sounds. EXTREMITIES: No peripheral edema. SKIN: No new gross rash. LYMPHATICS: No peripheral lymphadenopathy. LABORATORY INVESTIGATION: Showed a sodium of 130, potassium of 3.4. Urine osmolality of 450 with urine sodium of 78. IMPRESSION: 1. Hyponatremia in the context of syndrome of inappropriate secretion of antidiuretic hormone. 2. Syndrome of inappropriate secretion of antidiuretic hormone. 3. Congestive heart failure. PLAN: 1. We will give this patient one-time dose of Vaprisol and re-evaluate the sodium level later in the day. 2. Further management will be dependent on the clinical course. Job ID: [id number]
[2020-05-22] MEDS: cefTRIAXone\\ROCEPHIN 1 GM in Sodium Chloride 0.9% 100 ML IVPB SCH (20:42)
[2020-05-22] MEDS: Nicotine 21 MG PATCH TD SCH (20:44)
[2020-05-23 04:30] LABS: Anion Gap 15 mmol/L (10-20); BUN (Urea Nitrogen) 15 mg/dL (8.4-25.7); Calc. Creatinine Clearance 199 mL/min (70-130); Carbon Dioxide 23 mmol/L (23-31); Chloride 95 mmol/L (98-107); Glucose 87 mg/dL (80-115); Sodium 129 mmol/L (136-145)
[2020-05-23] MEDS ORDERED: Tolvaptan 15 MG TAB PO SCH (09:00)
[2020-05-23] MEDS ORDERED: TOLVAPTAN 30 MG TAB PO SCH (09:00)
[2020-05-23] MEDS: Famotidine 20 MG TAB PO SCH ×2 (09:04→20:19)
[2020-05-23] MEDS: Potassium Chloride 20 MEQ TAB PO SCH ×2 (09:04→18:26)
[2020-05-23] MEDS: predniSONE 20 MG TAB PO SCH (09:06)
[2020-05-23] MEDS: Apixaban 5 MG TAB PO SCH ×2 (09:06→20:19)
[2020-05-23] MEDS: Furosemide 20 MG TAB PO SCH ×2 (09:06→16:28)
[2020-05-23] MEDS: Folic Acid 1 MG TAB PO SCH (09:08)
[2020-05-23] MEDS: Multivitamin W/ Minerals 1 TAB PO SCH (09:08)
[2020-05-23] MEDS: Carvedilol 6.25 MG TAB PO SCH ×3 (09:09→20:19)
[2020-05-23] MEDS: Lisinopril 2.5 MG TAB PO SCH (09:12)
[2020-05-23] MEDS: Thiamine 100 MG TAB PO SCH ×2 (09:12→09:13)
[2020-05-23] MEDS: Aspirin Chewable 81 MG TAB PO SCH (09:12)
[2020-05-23] MEDS: Bupropion 150 MG SR TAB PO SCH (09:13)
[2020-05-23] MEDS: Amiodarone 450 MG in Dextrose 5% in Water 250 ML IVPB SCH (11:32)
--- NOTE | 2020-05-23 12:36 | PDOC.HOSPP ---
- Subjective Encounter Date: 05/23/20 Encounter Time: 12:20 Subjective: f/u for CHF/COPD/Hyponatremia/A-fib RVR receiving Amiodarone/Coreg/Eliquis/Lasix. Overall feels better and less SOB. Plan for PATI/CV in am. - Objective Vital Signs & Weight: Vital Signs (12 hours) Temp Pulse Resp BP BP BP Pulse Ox 05/23/20 11:30 98.0 F 92 18 140/76 94 L 05/23/20 08:00 149/106 H 95 05/23/20 07:10 98.4 F 106 H 16 149/106 H 95 05/23/20 07:09 126 H 16 97 05/23/20 03:45 98.3 F 131 H 18 156/105 H 94 L Weight Weight 304 lb 3.2 oz I&O: 05/22/20 05/23/20 05/24/20 06:59 06:59 06:59 Intake Total 960 Output Total 200 Balance 760 Result Diagrams: 05/20/20 04:21 05/23/20 03:56 Additional Labs: Laboratory Tests 05/19/20 05/19/20 05/19/20 17:56 17:58 17:58 Plt Count Sodium 125 L Potassium Magnesium Total Bilirubin 1.3 H B-Natriuretic Peptide 389.5 H TSH 3rd Generation 1.3970 SARS-CoV-2 RNA (JR) 05/19/20 05/19/20 05/19/20 17:58 20:39 22:15 Plt Count 129 L Sodium Potassium Magnesium 1.5 L Total Bilirubin B-Natriuretic Peptide TSH 3rd Generation SARS-CoV-2 RNA (JR) Not Detected 05/20/20 05/20/20 05/21/20 04:21 04:21 05:01 Plt Count Sodium 126 L 129 L Potassium 3.4 L 3.3 L Magnesium Total Bilirubin B-Natriuretic Peptide 467.5 H TSH 3rd Generation SARS-CoV-2 RNA (JR) EKG Reviewed by me: Yes (Tele - A-fib with variable rate >100) Hospitalist ROS - Medication Medications: Active Medications Generic Name Dose Route Start Last Admin Trade Name Freq PRN Reason Stop Dose Admin Albuterol/Ipratropium 3 ml 05/20/20 01:00 05/23/20 07:09 Ipratropium/Albuterol Sulfate 3 Ml Neb NEB 3 ml [id number] BAIRON Administration Apixaban 5 mg 05/19/20 21:00 05/23/20 09:06 Apixaban 5 Mg Tab PO 5 mg BID BAIRON Administration Aspirin 81 mg 05/20/20 09:00 05/23/20 09:12 Aspirin Chewable 81 Mg Tab PO 81 mg DAILY BAIRON Administration Chlordiazepoxide HCl 10 mg 05/19/20 21:00 05/23/20 09:17 Chlordiazepoxide Hcl 10 Mg Cap PO 10 mg TID BAIRON Administration Famotidine 20 mg 05/19/20 21:00 05/23/20 09:04 Famotidine 20 Mg Tab PO 20 mg BID BAIRON Administration Folic Acid 1 mg 05/21/20 09:00 05/23/20 09:08 Folic Acid 1 Mg Tab PO 1 mg DAILY BAIRON Administration Furosemide 40 mg 05/20/20 09:00 05/23/20 09:06 Furosemide 20 Mg Tab PO 40 mg 0900,1400 BAIRON Administration Ceftriaxone Sodium 1 gm/ 100 mls @ 200 mls/hr 05/19/20 21:00 05/22/20 20:42 Sodium Chloride IVPB 100 mls Q24HR BAIRON Administration Amiodarone HCl 450 mg/ 259 mls @ 0 mls/hr 05/21/20 18:15 05/23/20 11:32 Dextrose/Water IVPB 259 mls INF BAIRON Administration Protocol Per Protocol Iron/Minerals/Multivitamins 1 tab 05/21/20 09:00 05/23/20 09:08 Multivitamin W/ Minerals 1 Tab PO 1 tab DAILY BARION Administration Nicotine 21 mg 05/19/20 20:00 05/22/20 20:44 Nicotine 21 Mg Patch TD 21 mg Q24HR BAIRON Administration Potassium Chloride 40 meq 05/21/20 17:00 05/23/20 09:04 Potassium Chloride 20 Meq Tab PO 40 meq BID-WM BAIRON Administration Prednisone 40 mg 05/20/20 09:00 05/23/20 09:06 Prednisone 20 Mg Tab PO 40 mg DAILY BAIRON Administration Sodium Chloride 10 ml 05/21/20 21:00 05/23/20 09:19 Flush - Normal Saline 10 Ml Syringe IVF 10 ml Q12HR BAIRON Administration Thiamine HCl 100 mg 05/21/20 09:00 05/23/20 09:13 Thiamine 100 Mg Tab PO 100 mg DAILY BAIRON Administration Tolvaptan 15 mg 05/23/20 09:00 05/23/20 10:14 Tolvaptan 30 Mg Tab PO 15 mg DAILY BAIRON Administration Hospitalist Exam Vitals: Vital Signs (12 hours) Temp Pulse Resp BP BP BP Pulse Ox 05/23/20 11:30 98.0 F 92 18 140/76 94 L 05/23/20 08:00 149/106 H 95 05/23/20 07:10 98.4 F 106 H 16 149/106 H 95 05/23/20 07:09 126 H 16 97 05/23/20 03:45 98.3 F 131 H 18 156/105 H 94 L Weight Weight 304 lb 3.2 oz General Appearance: NAD, awake alert Eye: PERRL, anicteric sclera ENT: normocephalic atraumatic, no oropharyngeal lesions Neck: supple, symmetric, no JVD, no thyromegaly, no lymphadenopathy Heart: no gallops, no rubs, normal peripheral pulses, irregular Heart - other findings: S1, S2 tachycardic Respiratory - other findings: diminished in bases, occ wheeze/rhonchi Gastrointestinal: soft, non-tender, non-distended, normal bowel sounds, no palpable masses Extremities: no cyanosis, 2+ LE edema Skin: normal turgor Neurological: cranial nerve grossly intact, no new deficit Musculoskeletal: normal tone, generalized weakness Psychiatric: A&O x 3 Hosp A/P (1) Atrial fibrillation with RVR Code(s): I48.91 - UNSPECIFIED ATRIAL FIBRILLATION Status: Acute Plan: Rate variable on Amiodarone gtt/Coreg, plan for PATI/CV in am, continue Eliquis (2) CHF (congestive heart failure) Code(s): I50.9 - HEART FAILURE, UNSPECIFIED Status: Acute Qualifiers: Heart failure type: systolic Heart failure chronicity: acute on chronic Qualified Code(s): I50.23 - Acute on chronic systolic (congestive) heart failure Plan: Continue Lasix 40mg po BID/Lisinopril, serial I/O's, 10lb weight loss since admit (3) Hyponatremia Code(s): E87.1 - HYPO-OSMOLALITY AND HYPONATREMIA Status: Chronic Plan: Improved, continue serial Na+ monitoring (4) COPD exacerbation Code(s): J44.1 - CHRONIC OBSTRUCTIVE PULMONARY DISEASE W (ACUTE) EXACERBATION Status: Acute Plan: Improved, continue pulm support, Prednisone/Duonebs/Rocephin (5) Alcohol abuse Code(s): F10.10 - ALCOHOL ABUSE, UNCOMPLICATED Status: Chronic Plan: Continue Librium, ASE protocol - Plan plan discussed w/ family, continue antibiotics, PT/OT, pediatric social worker, respiratory therapy, out of bed/ambulate Continue pulmonary support Continue Lasix 40mg po BID Continue Rocephin/Prednisone Duonebs q4h Plan for PATI/CV 05/24/20 Continue Eliquis Continue Tolvaptan AM lab: BMP
[2020-05-23] MEDS ORDERED: Temazepam 15 MG CAP PO PRN (12:37)
--- NOTE | 2020-05-23 18:26 | PRG ---
DATE OF SERVICE: 05/23/2020 OBJECTIVE: VITAL SIGNS: The patient is noted with the following vital signs; afebrile, temperature , respiratory rate of 16, O2 saturation of 95%, blood pressure 142/84. HEENT: Unremarkable. CARDIOVASCULAR SYSTEM: First and second heart sounds were heard. RESPIRATORY SYSTEM: Clear to auscultation. DIGESTIVE SYSTEM: Revealed an obese abdomen. EXTREMITIES: No peripheral edema. LABORATORY INVESTIGATION: Showed a sodium that drifted down to 129. IMPRESSION: 1. Congestive heart failure. 2. Hyponatremia in the context of syndrome of inappropriate secretion of antidiuretic hormone. 3. Syndrome of inappropriate secretion of antidiuretic hormone. PLAN: 1. We will start this patient on tolvaptan 15 mg on daily basis and monitor the sodium accordingly. 2. Further management to be dependent on the clinical course. Job ID: [id number]
[2020-05-23] MEDS: Nicotine 21 MG PATCH TD SCH (20:18)
[2020-05-23] MEDS: cefTRIAXone\\ROCEPHIN 1 GM in Sodium Chloride 0.9% 100 ML IVPB SCH (20:19)
[2020-05-24 05:02] LABS: Anion Gap 15 mmol/L (10-20); BUN (Urea Nitrogen) 13 mg/dL (8.4-25.7); Calc. Creatinine Clearance 185 mL/min (70-130); Calcium 9.2 mg/dL (7.8-10.44); Carbon Dioxide 30 mmol/L (23-31); Chloride 93 mmol/L (98-107); Glucose 94 mg/dL (80-115); Potassium 3.9 mmol/L (3.5-5.1); Sodium 134 mmol/L (136-145)
--- NOTE | 2020-05-24 08:45 | OP ---
DATE OF PROCEDURE: 05/24/2020 PROCEDURE: Transesophageal echocardiogram. DESCRIPTION OF PROCEDURE: A 59-year-old gentleman with paroxysmal atrial fibrillation and cardiomyopathy. The patient was taken to the PACU. The patient was sedated by Anesthesiology. A transesophageal probe was placed into the distal esophagus and stomach. Echocardiographic images were obtained. Findings were obtained. The transesophageal probe was removed. FINDINGS: 1. Moderate to severe decrease in left ventricular systolic function. 2. Left atrial enlargement. 3. Left ventricle is mildly dilated. 4. Mild to moderate mitral regurgitation. 5. Mild tricuspid regurgitation. 6. No thrombus noted in the left atrium or left atrial appendage. 7. Atherosclerotic debris in the descending aorta. IMPRESSION: No formed thrombus in left atrium or left atrial appendage with a moderate to severe decrease in left ventricular systolic function. Job ID: [id number] MTDD
[2020-05-24] MEDS: Furosemide 20 MG TAB PO SCH ×2 (09:30→16:10)
[2020-05-24] MEDS: Bupropion 150 MG SR TAB PO SCH ×2 (09:31→20:37)
[2020-05-24] MEDS: Famotidine 20 MG TAB PO SCH ×2 (09:31→20:37)
[2020-05-24] MEDS: predniSONE 20 MG TAB PO SCH (09:31)
[2020-05-24] MEDS: Aspirin Chewable 81 MG TAB PO SCH (09:31)
[2020-05-24] MEDS: Potassium Chloride 20 MEQ TAB PO SCH ×2 (09:31→16:47)
[2020-05-24] MEDS: Multivitamin W/ Minerals 1 TAB PO SCH (09:32)
[2020-05-24] MEDS: Thiamine 100 MG TAB PO SCH (09:32)
[2020-05-24] MEDS: Folic Acid 1 MG TAB PO SCH (09:32)
[2020-05-24] MEDS: Lisinopril 5 MG TAB PO SCH (09:32)
[2020-05-24] MEDS: Tolvaptan 15 MG TAB PO SCH (09:33)
[2020-05-24] MEDS: Apixaban 5 MG TAB PO SCH ×2 (09:33→20:36)
[2020-05-24] MEDS: Amiodarone 200 MG TAB PO SCH ×2 (11:22→20:36)
--- NOTE | 2020-05-24 13:31 | PDOC.HOSPP ---
- Subjective Encounter Date: 05/24/20 Encounter Time: 13:25 Subjective: f/u for A-fib RVR s/p PATI/CV with NSR. Remains on Amiodarone/Coreg/Eliquis. - Objective Vital Signs & Weight: Vital Signs (12 hours) Temp Pulse Resp BP BP Pulse Ox 05/24/20 12:35 134/66 05/24/20 11:24 97.6 F 88 18 134/66 92 L 05/24/20 09:05 98.0 F 85 14 165/87 H 93 L 05/24/20 08:00 165/87 H 05/24/20 07:03 98 16 05/24/20 04:00 98.2 F 48 L 16 165/105 H 92 L Weight Weight 301 lb 6.4 oz I&O: 05/23/20 05/24/20 05/25/20 06:59 06:59 06:59 Intake Total 892 Output Total 1710 Balance -818 Result Diagrams: 05/20/20 04:21 05/24/20 04:03 Additional Labs: Laboratory Tests 05/19/20 05/19/20 05/19/20 17:56 17:58 17:58 Plt Count Sodium 125 L Potassium Magnesium Total Bilirubin 1.3 H B-Natriuretic Peptide 389.5 H TSH 3rd Generation 1.3970 SARS-CoV-2 RNA (JR) 05/19/20 05/19/20 05/19/20 17:58 20:39 22:15 Plt Count 129 L Sodium Potassium Magnesium 1.5 L Total Bilirubin B-Natriuretic Peptide TSH 3rd Generation SARS-CoV-2 RNA (JR) Not Detected 05/20/20 05/20/20 05/21/20 04:21 04:21 05:01 Plt Count Sodium 126 L 129 L Potassium 3.4 L 3.3 L Magnesium Total Bilirubin B-Natriuretic Peptide 467.5 H TSH 3rd Generation SARS-CoV-2 RNA (JR) Radiology Reviewed by me: Yes (PATI - no thrombus) EKG Reviewed by me: Yes (Tele - SR) Hospitalist ROS - Medication Medications: Active Medications Generic Name Dose Route Start Last Admin Trade Name Freq PRN Reason Stop Dose Admin Albuterol/Ipratropium 3 ml 05/20/20 01:00 05/24/20 07:03 Ipratropium/Albuterol Sulfate 3 Ml Neb NEB 3 ml [id number] BAIRON Administration Amiodarone HCl 400 mg 05/24/20 09:00 05/24/20 11:22 Amiodarone 200 Mg Tab PO 400 mg BID BAIRON Administration Apixaban 5 mg 05/19/20 21:00 05/24/20 09:33 Apixaban 5 Mg Tab PO 5 mg BID BAIRON Administration Aspirin 81 mg 05/20/20 09:00 05/24/20 09:31 Aspirin Chewable 81 Mg Tab PO 81 mg DAILY BAIRON Administration Bupropion HCl 150 mg 05/24/20 09:00 05/24/20 09:31 Bupropion 150 Mg Sr Tab PO 150 mg BID BAIRON Administration Chlordiazepoxide HCl 10 mg 05/19/20 21:00 05/24/20 12:35 Chlordiazepoxide Hcl 10 Mg Cap PO 10 mg TID BAIRON Administration Famotidine 20 mg 05/19/20 21:00 05/24/20 09:31 Famotidine 20 Mg Tab PO 20 mg BID BAIRON Administration Folic Acid 1 mg 05/21/20 09:00 05/24/20 09:32 Folic Acid 1 Mg Tab PO 1 mg DAILY BAIRON Administration Furosemide 40 mg 05/20/20 09:00 05/24/20 09:30 Furosemide 20 Mg Tab PO 40 mg 0900,1400 BAIRON Administration Ceftriaxone Sodium 1 gm/ 100 mls @ 200 mls/hr 05/19/20 21:00 05/23/20 20:19 Sodium Chloride IVPB 100 mls Q24HR BAIRON Administration Iron/Minerals/Multivitamins 1 tab 05/21/20 09:00 05/24/20 09:32 Multivitamin W/ Minerals 1 Tab PO 1 tab DAILY BAIRON Administration Lisinopril 5 mg 05/24/20 09:00 05/24/20 09:32 Lisinopril 5 Mg Tab PO 5 mg DAILY BAIRON Administration Potassium Chloride 40 meq 05/21/20 17:00 05/24/20 09:31 Potassium Chloride 20 Meq Tab PO 40 meq BID-WM BAIRON Administration Prednisone 40 mg 05/20/20 09:00 05/24/20 09:31 Prednisone 20 Mg Tab PO 40 mg DAILY BAIRON Administration Sodium Chloride 10 ml 05/21/20 21:00 05/24/20 09:42 Flush - Normal Saline 10 Ml Syringe IVF Not Given Q12HR [facility] Thiamine HCl 100 mg 05/21/20 09:00 05/24/20 09:32 Thiamine 100 Mg Tab PO 100 mg DAILY BAIRON Administration Tolvaptan 15 mg 05/24/20 09:00 05/24/20 09:33 Tolvaptan 15 Mg Tab PO 15 mg DAILY BAIRON Administration Hospitalist Exam Vitals: Vital Signs (12 hours) Temp Pulse Resp BP BP Pulse Ox 05/24/20 12:35 134/66 05/24/20 11:24 97.6 F 88 18 134/66 92 L 05/24/20 09:05 98.0 F 85 14 165/87 H 93 L 05/24/20 08:00 165/87 H 05/24/20 07:03 98 16 05/24/20 04:00 98.2 F 48 L 16 165/105 H 92 L Weight Weight 301 lb 6.4 oz General Appearance: NAD, awake alert Eye: PERRL, anicteric sclera ENT: normocephalic atraumatic, no oropharyngeal lesions Neck: supple, symmetric, no JVD, no thyromegaly, no lymphadenopathy Heart: RRR, no gallops, no rubs, normal peripheral pulses Heart - other findings: S1, S2 Respiratory - other findings: diminished in bases, occ wheeze Gastrointestinal: soft, non-tender, non-distended, normal bowel sounds, no palpable masses Gastrointestinal - other findings: obese Extremities: no cyanosis, no clubbing, 1+ LE edema Skin: normal turgor Neurological: cranial nerve grossly intact, no new deficit Musculoskeletal: normal tone, generalized weakness Psychiatric: normal affect, A&O x 3 Hosp A/P (1) Atrial fibrillation with RVR Code(s): I48.91 - UNSPECIFIED ATRIAL FIBRILLATION Status: Acute Plan: s/p PATI/CV with NSR, continue Coreg/Amiodarone/Eliquis (2) CHF (congestive heart failure) Code(s): I50.9 - HEART FAILURE, UNSPECIFIED Status: Acute Qualifiers: Heart failure type: systolic Heart failure chronicity: acute on chronic Qualified Code(s): I50.23 - Acute on chronic systolic (congestive) heart failure Plan: EF 35-40%, continue Lasix/Coreg/Lisinopril/ASA (3) Hyponatremia Code(s): E87.1 - HYPO-OSMOLALITY AND HYPONATREMIA Status: Chronic Plan: Improved, continue Tolvaptan (4) COPD exacerbation Code(s): J44.1 - CHRONIC OBSTRUCTIVE PULMONARY DISEASE W (ACUTE) EXACERBATION Status: Acute Plan: Improved, continue general pulm support, continue Prednison/Duonebs (5) Alcohol abuse Code(s): F10.10 - ALCOHOL ABUSE, UNCOMPLICATED Status: Chronic Plan: Cessation resources, MVI/Thiamine/Folate - Plan PT/OT, high school social studies teacher, respiratory therapy, out of bed/ambulate Continue pulmonary support Continue Lasix 40mg po BID Continue Prednisone Duonebs q4h Continue Coreg/Amiodarone Continue Eliquis Continue Tolvaptan AM lab: BMP Likely home in 24-48h
[2020-05-24] MEDS ORDERED: Lidocaine 1% PF 5 ML VIAL ONE (13:36)
[2020-05-24] MEDS ORDERED: PROPOFOL 200 MG/20 ML VIAL ONE (13:36)
--- NOTE | 2020-05-24 14:39 | CCLSPC ---
PROCEDURE: Direct current cardioversion. INDICATION: Atrial fibrillation with fast ventricular response. The patient remained sedated after transesophageal echo revealed no intracardiac thrombus. With 200 joules of synchronized energy, he returned promptly to normal sinus rhythm with rate of 78 per minute. Job ID: [id number]
--- NOTE | 2020-05-24 16:03 | PRG ---
DATE OF SERVICE: 05/24/2020 OBJECTIVE: VITAL SIGNS: The patient is noted with the following vital signs; afebrile, temperature 97.6, pulse 88, respiratory rate of 18, blood pressure 134/66. HEENT: Unremarkable. CARDIOVASCULAR SYSTEM: First and second heart sounds were heard. RESPIRATORY SYSTEM: Clear to auscultation. DIGESTIVE SYSTEM: Revealed a benign abdomen with positive bowel sounds. EXTREMITIES: No peripheral edema. SKIN: No new gross rash. LYMPHATICS: No peripheral lymphadenopathy. LABORATORY INVESTIGATION: Showed a sodium of 134. IMPRESSION: 1. Hyponatremia in the context of syndrome of inappropriate secretion of antidiuretic hormone. 2. Syndrome of inappropriate secretion of antidiuretic hormone. 3. Congestive heart failure. PLAN: 1. The patient currently on tolvaptan, seems to be responding well to this modality of treatment. 2. Further management to be dependent on the clinical course. Job ID: [id number]
[2020-05-24] MEDS: Carvedilol 25 MG TAB PO SCH (16:47)
[2020-05-25 05:02] LABS: Anion Gap 13 mmol/L (10-20); BUN (Urea Nitrogen) 15 mg/dL (8.4-25.7); Calc. Creatinine Clearance 188 mL/min (70-130); Carbon Dioxide 29 mmol/L (23-31); Chloride 94 mmol/L (98-107); Glucose 95 mg/dL (80-115); Potassium 3.9 mmol/L (3.5-5.1); Sodium 132 mmol/L (136-145)
[2020-05-25] MEDS: Apixaban 5 MG TAB PO SCH ×2 (09:08→20:32)
[2020-05-25] MEDS: Bupropion 150 MG SR TAB PO SCH ×2 (09:08→20:34)
[2020-05-25] MEDS: Aspirin Chewable 81 MG TAB PO SCH (09:08)
[2020-05-25] MEDS: predniSONE 20 MG TAB PO SCH (09:08)
[2020-05-25] MEDS: Multivitamin W/ Minerals 1 TAB PO SCH (09:08)
[2020-05-25] MEDS: Folic Acid 1 MG TAB PO SCH (09:08)
[2020-05-25] MEDS: Amiodarone 200 MG TAB PO SCH ×2 (09:08→20:32)
[2020-05-25] MEDS: Famotidine 20 MG TAB PO SCH ×2 (09:09→20:34)
[2020-05-25] MEDS: Lisinopril 5 MG TAB PO SCH ×2 (09:09→20:32)
[2020-05-25] MEDS: Carvedilol 25 MG TAB PO SCH ×2 (09:09→16:41)
[2020-05-25] MEDS: Furosemide 20 MG TAB PO SCH ×2 (09:09→13:26)
[2020-05-25] MEDS: Potassium Chloride 20 MEQ TAB PO SCH ×2 (09:09→16:40)
[2020-05-25] MEDS: Thiamine 100 MG TAB PO SCH (09:10)
[2020-05-25] MEDS: Tolvaptan 15 MG TAB PO SCH (09:24)
[2020-05-25] MEDS: TOLVAPTAN 30 MG TAB PO SCH (09:48)
--- NOTE | 2020-05-25 13:22 | PRG ---
DATE OF SERVICE: 05/25/2020 TIME OF SERVICE: 10:00 a.m. SUBJECTIVE: The patient currently being evaluated and treated for atrial fibrillation, RVR, status post PATI with normal sinus rhythm and the patient currently on amiodarone, Coreg, Eliquis, as well as being evaluated for physical debility and alcohol abuse. OBJECTIVE: VITAL SIGNS: Has a temperature of 97.5 degrees Fahrenheit, pulse of 73 per minute, respiratory rate of 16 per minute, saturation of 97%, has a blood pressure of 131/65 mmHg. Has an airway which is clear. HEENT: Atraumatic, normocephalic. NECK: Supple. No bruit. No lymphadenopathy. CVS: S1 and S2, irregular. CHEST: Bilateral air entry present. No rhonchi. No wheeze. ABDOMEN: Soft, nontender. Bowel sounds are present. No organomegaly. EXTREMITIES: No cyanosis. 1+ edema noted. No icterus. No pallor. NEUROLOGIC: The patient is alert, oriented x3. No focal motor or sensory deficits noted except for severe physical debility. HEME: No ecchymosis or petechiae. PSYCH: Normal mood. SKIN: Intact. DIAGNOSTIC STUDIES: Sodium 132, potassium 3.9, chloride 94, carbon dioxide 29, BUN 15, creatinine 0.78, glucose is 95. ASSESSMENT: 1. Atrial fibrillation with rapid ventricular rate. The patient is status post transesophageal echocardiogram and cardioversion with normal sinus rhythm right at this point of time. To continue Coreg, amiodarone, and Eliquis per Cardiology recommendations. 2. Congestive heart failure, systolic in nature. Ejection fraction of 35% to 40%. Continue Lasix, Coreg, lisinopril, and aspirin. 3. Hyponatremia with hypoosmolality, Nephrology on consult. The patient currently on tolvaptan. 4. Chronic obstructive pulmonary disease. This is optimized. 5. Extensive alcohol abuse. The patient currently on multivitamin, thiamine, and folate. 6. Physical debility, severe. The patient significantly unstable and at this point of time, he is on anticoagulation, which makes him very high risk for significant fall and catastrophic outcomes. PLAN: Discussed in detail of the diagnosis, treatment, and followup with the patient as well as the patient's who was present at bedside. Advised about continuing Lasix, prednisone, Coreg, amiodarone, Eliquis, and tolvaptan. Advised about physical therapy and occupational therapy which has been activated at this point of time. Discharge plan is to snf facility as the patient is significantly unstable to walk and we will await PT and OT recommendations too. Discharge planning will depend on further hospital course. Job ID: [id number]
--- NOTE | 2020-05-25 15:39 | PRG ---
DATE OF SERVICE: 05/25/2020 SUBJECTIVE: The patient is seen, seems to be doing much better, noted with the following vital signs. OBJECTIVE: VITAL SIGNS: Afebrile, temperature 97.9, pulse 71, respiratory rate of 18, blood pressure 141/71. HEENT: Unremarkable. CARDIOVASCULAR SYSTEM: First and second heart sounds were heard. RESPIRATORY SYSTEM: Clear to auscultation. DIGESTIVE SYSTEM: Revealed a benign abdomen with positive bowel sounds. EXTREMITIES: No peripheral edema. SKIN: No new gross rash. LYMPHATICS: No peripheral lymphadenopathy. LABORATORY INVESTIGATION: Showed a sodium of 132. IMPRESSION: 1. Hyponatremia in the context of syndrome of inappropriate antidiuretic hormone secretion, seems to be responding well to anti-ADH. 2. Congestive heart failure. PLAN: 1. Continue current management. 2. Increase protein intake in the way of animal meat. 3. Outpatient Nephrology followup status post discharge is recommended. Job ID: [id number]
[2020-05-26 04:16] LABS: #Lymphocytes 0.8 thou/uL (1.20-3.40); #Monocytes 0.8 thou/uL (0.11-0.59); #Neutrophils 5.8 thou/uL (1.40-6.50); %Basophils 0.2 % (0.0-1.0); %Eosinophils 0.3 % (0.0-10.0); %Lymphocytes 10.7 % (21.0-51.0); %Monocytes 10.4 % (0.0-10.0); %Neutrophils 78.3 % (42.0-75.0); Hemoglobin 13.2 g/dL (14.0-18.0); Mean Corpuscular HGB CONC 33.1 g/dL (32.0-36.0); Mean Corpuscular Hemoglobin 33.3 pg (27.0-31.0); Platelet Count 157 thou/uL (130-400); RBC Distribution Width 12.9 % (11.5-14.5); Red Blood Cell (RBC) Count 3.95 mill/uL (4.70-6.10); White Blood Cell (WBC) Count 7.4 thou/uL (4.8-10.8)
[2020-05-26 04:39] LABS: ALT (SGPT) 48 U/L (8-55); AST (SGOT) 64 U/L (5-34); Albumin 3.4 g/dL (3.4-4.8); Alkaline Phosphatase 85 U/L (40-110); Anion Gap 14 mmol/L (10-20); BUN (Urea Nitrogen) 17 mg/dL (8.4-25.7); Bilirubin, Total 1.2 mg/dL (0.2-1.2); Calc. Creatinine Clearance 182 mL/min (70-130); Calcium 8.7 mg/dL (7.8-10.44); Carbon Dioxide 27 mmol/L (23-31); Chloride 97 mmol/L (98-107); Globulin 3.5 g/dL (2.4-3.5); Glucose 87 mg/dL (80-115); Potassium 4.3 mmol/L (3.5-5.1); Protein, Total 6.9 g/dL (5.8-8.1); Sodium 134 mmol/L (136-145)
[2020-05-26] MEDS: Aspirin Chewable 81 MG TAB PO SCH (08:48)
[2020-05-26] MEDS: Bupropion 150 MG SR TAB PO SCH ×2 (08:49→22:01)
[2020-05-26] MEDS: TOLVAPTAN 30 MG TAB PO SCH (08:50)
[2020-05-26] MEDS: Thiamine 100 MG TAB PO SCH (08:51)
[2020-05-26] MEDS: predniSONE 20 MG TAB PO SCH ×2 (08:51→12:38)
[2020-05-26] MEDS: Folic Acid 1 MG TAB PO SCH (08:51)
[2020-05-26] MEDS: Furosemide 20 MG TAB PO SCH ×2 (08:52→15:20)
[2020-05-26] MEDS: Famotidine 20 MG TAB PO SCH ×2 (08:52→21:56)
[2020-05-26] MEDS: Potassium Chloride 20 MEQ TAB PO SCH ×2 (08:52→18:02)
[2020-05-26] MEDS: Multivitamin W/ Minerals 1 TAB PO SCH (08:53)
[2020-05-26] MEDS: Lisinopril 5 MG TAB PO SCH ×2 (08:53→21:55)
[2020-05-26] MEDS: Apixaban 5 MG TAB PO SCH ×2 (08:53→21:56)
[2020-05-26] MEDS: Amiodarone 200 MG TAB PO SCH ×2 (08:53→21:55)
[2020-05-26] MEDS: Carvedilol 25 MG TAB PO SCH ×2 (08:53→18:03)
--- NOTE | 2020-05-26 11:09 | PRG ---
DATE OF SERVICE: 05/26/2020 TIME OF SERVICE: 10:00 a.m. CONSULTATIONS ON THE CASE: 1. Dr. Russel Carrasco, Cardiology. 2. Dr. Herzog, Nephrology. SUBJECTIVE: The patient seen and evaluated at bedside. The patient remains alert, oriented, but has significant physical debility for risk of fall. OBJECTIVE: VITAL SIGNS: Has a temperature 97.9 degrees Fahrenheit, pulse of 64 per minute, respiratory rate of 14 per minute, saturation 96% on room air. Has a blood pressure of 156/85 mmHg. Has an airway, which is clear. HEENT: Atraumatic, normocephalic. NECK: Supple. No bruit. No lymphadenopathy. CVS: S1, S2. No abnormal rhythms or murmurs. CHEST: Bilateral air entry present. No rhonchi. No wheeze. ABDOMEN: Soft, nontender. Bowel sounds are present. No organomegaly. EXTREMITIES: No cyanosis. Nonicteric. No pallor. NEUROLOGIC: The patient is alert, oriented x3. No focal motor or sensory deficits noted. HEME: No ecchymosis or petechiae. PSYCH: No depression or anxiety. DIAGNOSTIC STUDIES: WBC 7.4, hemoglobin 13.2, hematocrit 39.7, platelets are 157. Sodium 134, potassium 4.3, chloride 97, carbon dioxide 27, BUN 17, creatinine 0.79. AST 64, ALT 48. MEDICATIONS: 1. Amiodarone 400 mg b.i.d. 2. Eliquis 5 mg b.i.d. 3. Aspirin 81 mg daily. 4. Wellbutrin 150 mg b.i.d. 5. Coreg 25 mg b.i.d. 6. Librium 10 mg t.i.d. 7. Famotidine 20 mg b.i.d. 8. Folic acid 1 mg daily. 9. Lasix 40 mg b.i.d. 10. Lisinopril 5 mg daily. 11. Multivitamins daily. 12. Prednisone 40 mg daily. 13. Thiamine 100 mg daily. 14. Tolvaptan 15 mg daily. ASSESSMENT: 1. Atrial fibrillation with controlled ventricular rate. Status post transesophageal echocardiogram and cardioversion with normal sinus rhythm at this point of time. The patient on amiodarone, Coreg, Eliquis per Cardiology recommendations. 2. Congestive heart failure, ejection fraction of 35% to 40%. The patient on Coreg, lisinopril, aspirin, and Lasix. 3. Hyponatremia with hypoosmolality. Nephrology on consult. The patient on tolvaptan. 4. Chronic obstructive pulmonary disease. The patient's steroids to be tapered off at this point of time. 5. Extensive alcohol abuse. The patient on multivitamins, thiamine, and folate. 6. Severe physical debility, making the patient at fall risk. At this point of time, PT and OT recommendations are to transition the patient to inpatient rehabilitation. PLAN: Discussed in detail of the diagnosis, treatment, and followup with the patient as well as the patient's present at bedside. The patient to continue tapering course of steroids, Lasix, Coreg, amiodarone, Eliquis, and tolvaptan. Appreciate Nephrology as well as Cardiology recommendations. Discharge planning to inpatient rehabilitation and Case Management has been notified in regard to same. Job ID: [id number]
--- NOTE | 2020-05-26 13:44 | PDOC.CPN ---
- Subjective Date: 05/26/20 Time: 13:41 Interval history: patient sitting in bed, family at bedside, waiting for discharge to inpatient rehab. No complaints today - Review of Systems General: denies: fever/chills, weight/appetite/sleep changes, night sweats, fatigue Respiratory: denies: cough, congestion, shortness of breath, exercise intolerance Cardiovascular: reports: edema. denies: chest pain, palpitation, paroxysmal nocturnal dyspnea, orthopnea Gastrointestinal: denies: nausea, vomiting, diarrhea, constipation, abd pain, GI bleeding Musculoskeletal: denies: pain, tenderness, stiffness, swelling, arthritis/arthralgias Neurological: reports: weakness - Objective Allergies/Adverse Reactions: Allergies Allergy/AdvReac Type Severity Reaction Status Date / Time grass pollen Allergy Verified 05/20/20 15:40 Visit Medications: Current Medications Acetaminophen (Acetaminophen 325 Mg Tab) 650 mg PO Q4H PRN PRN Reason: Headache/Fever/Mild Pain (1-3) Hydrocodone Bitart/Acetaminophen (Hydrocodone/Acetaminophen 7.5/325 Mg Tablet) 1 tab PO Q4H PRN PRN Reason: Moderate Pain (4-6) Albuterol/Ipratropium (Ipratropium/Albuterol Sulfate 3 Ml Neb) 3 ml NEB [id number] [facility] Last Admin: 05/26/20 07:51 Dose: 3 ml Documented by: Amiodarone HCl (Amiodarone 200 Mg Tab) 400 mg PO BID [facility] Last Admin: 05/26/20 08:53 Dose: 400 mg Documented by: Apixaban (Apixaban 5 Mg Tab) 5 mg PO BID [facility] Last Admin: 05/26/20 08:53 Dose: 5 mg Documented by: Aspirin (Aspirin Chewable 81 Mg Tab) 81 mg PO DAILY [facility] Last Admin: 05/26/20 08:48 Dose: 81 mg Documented by: Bisacodyl (Bisacodyl 5 Mg Tab) 10 mg PO DAILYPRN PRN PRN Reason: Constipation Bupropion HCl (Bupropion 150 Mg Sr Tab) 150 mg PO BID [facility] Last Admin: 05/26/20 08:49 Dose: 150 mg Documented by: Carvedilol (Carvedilol 25 Mg Tab) 25 mg PO BID[facility] Last Admin: 05/26/20 08:53 Dose: 25 mg Documented by: Chlordiazepoxide HCl (Chlordiazepoxide Hcl 10 Mg Cap) 10 mg PO TID [facility] Last Admin: 05/26/20 08:52 Dose: 10 mg Documented by: Famotidine (Famotidine 20 Mg Tab) 20 mg PO BID [facility] Last Admin: 05/26/20 08:52 Dose: 20 mg Documented by: Folic Acid (Folic Acid 1 Mg Tab) 1 mg PO DAILY [facility] Last Admin: 05/26/20 08:51 Dose: 1 mg Documented by: Furosemide (Furosemide 20 Mg Tab) 40 mg PO 0900,1400 [facility] Last Admin: 05/26/20 08:52 Dose: 40 mg Documented by: Iron/Minerals/Multivitamins (Multivitamin W/ Minerals 1 Tab) 1 tab PO DAILY [facility] Last Admin: 05/26/20 08:53 Dose: 1 tab Documented by: Lisinopril (Lisinopril 5 Mg Tab) 5 mg PO BID [facility] Last Admin: 05/26/20 08:53 Dose: 5 mg Documented by: Ondansetron HCl (Ondansetron Odt 4 Mg Tab) 4 mg PO Q6H PRN PRN Reason: Nausea/Vomiting Potassium Chloride (Potassium Chloride 20 Meq Tab) 40 meq PO BID-[facility] Last Admin: 05/26/20 08:52 Dose: 40 meq Documented by: Prednisone (Prednisone 20 Mg Tab) 30 mg PO 1200 [facility] Stop: 05/28/20 12:01 Last Admin: 05/26/20 12:38 Dose: 30 mg Documented by: Prednisone (Prednisone 20 Mg Tab) 20 mg PO 1200 [facility] Stop: 05/31/20 12:01 Prednisone (Prednisone 5 Mg Tab) 10 mg PO 1200 [facility] Stop: 06/03/20 12:01 Prednisone (Prednisone 5 Mg Tab) 5 mg PO 1200 [facility] Stop: 06/06/20 12:01 Sodium Chloride (Flush - Normal Saline 10 Ml Syringe) 10 ml IVF Q12HR [facility] Last Admin: 05/26/20 08:53 Dose: 10 ml Documented by: Sodium Chloride (Flush - Normal Saline 10 Ml Syringe) 10 ml IVF PRN PRN PRN Reason: Saline Flush Temazepam (Temazepam 15 Mg Cap) 15 mg PO HSPRN PRN PRN Reason: Insomnia Thiamine HCl (Thiamine 100 Mg Tab) 100 mg PO DAILY [facility] Last Admin: 05/26/20 08:51 Dose: 100 mg Documented by: Tolvaptan (Tolvaptan 30 Mg Tab) 15 mg PO DAILY [facility] Last Admin: 05/26/20 08:50 Dose: 15 mg Documented by: Vital Signs & Weight: Vital Signs Temp Pulse Pulse Pulse Resp BP BP 05/26/20 10:34 66 67 117/70 05/26/20 07:51 64 14 05/26/20 07:26 97.9 F 65 16 05/26/20 04:15 137/74 05/26/20 03:55 98.0 F 64 18 BP BP BP Pulse Ox 05/26/20 10:34 130/72 05/26/20 07:51 96 05/26/20 07:26 156/85 H 96 05/26/20 04:15 05/26/20 03:55 137/74 95 Weight 288 lb 1.6 oz - Quality Measures Condition: Heart Failure CV meds: Beta Christin: Yes, LUIS/ARB: Yes, ASA: Yes, Anticoagulant: Yes - Physical Exam General: alert & oriented x3, appears well, no apparent distress Neck: no bruit Cardiac: no murmur, regular rate, S1/S2 Lungs: normal breath sounds, no wheeze, rales, rhonchi Neuro: weakness Abdomen: active bowel sounds, soft Extremities: 1+ LE edema Skin: clear Musculoskeletal: no pain - Labs Result Diagrams: 05/26/20 03:45 05/26/20 03:45 Troponin/CKMB Troponin I 0.014 ng/mL (< 0.028) 05/21/20 05:01 - EKG Interpretation EKG Method: Telemetry EKG: sinus rhythm (SR depressed ST) - Assessment/Plan Assessment/Plan: 1. Atrial fibrillation with RVR: converted to NSR, on Amiodarone, on Eliquis- he is supposed to go to inpatient rehab per Hospitalist note due to lower extremity weakness, he is a fall risk, if he is unable to go to facility, may need to consider alternative to OAC for high risk of falls 2. History of cardioversion 3. CHF: EF 35-40%, he is on Coreg & lisinopril, he cannot afford Entresto 4. HTN: well controlled at this time 5. Smoker 6. Non-compliance 7. 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 Patient trying to make arrangements for post DC care. F/U with CHF clinic in one week after discharge Pt. seen and eval. by me. I agree with the A/P by the [employer]FA[employer]URING CONSULT[employer]. Chest clear. RRR. gjm
--- NOTE | 2020-05-26 19:25 | PRG ---
DATE OF SERVICE: SUBJECTIVE: The patient is seen and noted with the following vital signs. OBJECTIVE: VITAL SIGNS: Afebrile, temperature , pulse 67, blood pressure 134/74, and O2 saturation of 94%. HEENT: Unremarkable. CARDIOVASCULAR: First and second heart sounds were heard. RESPIRATORY: Clear to auscultation. DIGESTIVE: Revealed a benign abdomen. Positive bowel sounds. EXTREMITIES: No peripheral edema. SKIN: No new gross rash. LYMPHATIC: No peripheral lymphadenopathy. LABORATORY INVESTIGATION: Showed sodium of 134. IMPRESSION: Hyponatremia in the context of syndrome of inappropriate antidiuretic hormone secretion, responded well to anti-ADH. PLAN: We will continue with current management. Job ID: [id number]
[2020-05-27 04:21] LABS: Anion Gap 16 mmol/L (10-20); BUN (Urea Nitrogen) 19 mg/dL (8.4-25.7); Calc. Creatinine Clearance 173 mL/min (70-130); Calcium 8.9 mg/dL (7.8-10.44); Carbon Dioxide 26 mmol/L (23-31); Chloride 97 mmol/L (98-107); Glucose 105 mg/dL (80-115); Potassium 4.7 mmol/L (3.5-5.1); Sodium 134 mmol/L (136-145)
[2020-05-27] MEDS: Bupropion 150 MG SR TAB PO SCH ×2 (08:57→20:56)
[2020-05-27] MEDS: Aspirin Chewable 81 MG TAB PO SCH (08:58)
[2020-05-27] MEDS: TOLVAPTAN 30 MG TAB PO SCH (08:58)
[2020-05-27] MEDS: Multivitamin W/ Minerals 1 TAB PO SCH (08:58)
[2020-05-27] MEDS: Potassium Chloride 20 MEQ TAB PO SCH ×2 (08:58→16:32)
[2020-05-27] MEDS: Amiodarone 200 MG TAB PO SCH ×2 (08:58→20:56)
[2020-05-27] MEDS: Apixaban 5 MG TAB PO SCH ×2 (08:59→20:56)
[2020-05-27] MEDS: Thiamine 100 MG TAB PO SCH (08:59)
[2020-05-27] MEDS: Lisinopril 5 MG TAB PO SCH ×2 (08:59→20:56)
[2020-05-27] MEDS: Carvedilol 25 MG TAB PO SCH ×2 (08:59→16:32)
[2020-05-27] MEDS: Folic Acid 1 MG TAB PO SCH (08:59)
[2020-05-27] MEDS: Furosemide 20 MG TAB PO SCH ×2 (08:59→16:32)
[2020-05-27] MEDS: Famotidine 20 MG TAB PO SCH ×2 (08:59→20:56)
[2020-05-27] MEDS: predniSONE 20 MG TAB PO SCH (11:39)
--- NOTE | 2020-05-27 14:30 | PDOC.HOSPP ---
- Subjective Encounter Date: 05/27/20 Subjective: No acute events overnight. Patient is medically cleared pending rehab as recommended by PT/OT. I had a discussion with the supportive employment case manager explained to me that patient's is not covered qualify for rehab. We will continue to monitor his situation on a daily basis. He will at least need home health for PT/OT. - Objective Vital Signs & Weight: Vital Signs (12 hours) Temp Pulse Pulse Pulse Resp BP BP 05/27/20 11:49 134/74 05/27/20 11:40 97.8 F 64 16 05/27/20 09:57 77 70 146/82 H 05/27/20 09:05 05/27/20 08:54 97.6 F 72 18 05/27/20 08:13 61 14 05/27/20 08:00 128/67 05/27/20 05:06 98.1 F 61 12 BP BP BP Pulse Ox 05/27/20 11:49 05/27/20 11:40 134/74 95 05/27/20 09:57 128/67 05/27/20 09:05 96 05/27/20 08:54 128/67 96 05/27/20 08:13 98 05/27/20 08:00 05/27/20 05:06 150/85 H 97 Weight Weight 288 lb 1.6 oz I&O: 05/26/20 05/27/20 05/28/20 06:59 06:59 06:59 Intake Total 1500 1910 Output Total 1700 1553 Balance -200 357 Result Diagrams: 05/26/20 03:45 05/27/20 03:19 Hospitalist ROS - Medication Medications: Active Medications Generic Name Dose Route Start Last Admin Trade Name Freq PRN Reason Stop Dose Admin Albuterol/Ipratropium 3 ml 05/20/20 01:00 05/27/20 13:35 Ipratropium/Albuterol Sulfate 3 Ml Neb NEB Not Given [id number] [facility] Amiodarone HCl 400 mg 05/24/20 09:00 05/27/20 08:58 Amiodarone 200 Mg Tab PO 400 mg BID [facility] Administration Apixaban 5 mg 05/19/20 21:00 05/27/20 08:59 Apixaban 5 Mg Tab PO 5 mg BID [facility] Administration Aspirin 81 mg 05/20/20 09:00 05/27/20 08:58 Aspirin Chewable 81 Mg Tab PO 81 mg DAILY [facility] Administration Bupropion HCl 150 mg 05/24/20 09:00 05/27/20 08:57 Bupropion 150 Mg Sr Tab PO 150 mg BID [facility] Administration Carvedilol 25 mg 05/24/20 17:00 05/27/20 08:59 Carvedilol 25 Mg Tab PO 25 mg BID-WM [facility] Administration Chlordiazepoxide HCl 10 mg 05/19/20 21:00 05/27/20 09:00 Chlordiazepoxide Hcl 10 Mg Cap PO 10 mg TID [facility] Administration Famotidine 20 mg 05/19/20 21:00 05/27/20 08:59 Famotidine 20 Mg Tab PO 20 mg BID [facility] Administration Folic Acid 1 mg 05/21/20 09:00 05/27/20 08:59 Folic Acid 1 Mg Tab PO 1 mg DAILY [facility] Administration Furosemide 40 mg 05/20/20 09:00 05/27/20 08:59 Furosemide 20 Mg Tab PO 40 mg 0900,1400 [facility] Administration Iron/Minerals/Multivitamins 1 tab 05/21/20 09:00 05/27/20 08:58 Multivitamin W/ Minerals 1 Tab PO 1 tab DAILY [facility] Administration Lisinopril 5 mg 05/25/20 21:00 05/27/20 08:59 Lisinopril 5 Mg Tab PO 5 mg BID [facility] Administration Potassium Chloride 40 meq 05/21/20 17:00 05/27/20 08:58 Potassium Chloride 20 Meq Tab PO 40 meq BID- [facility] Administration Prednisone 30 mg 05/26/20 12:00 05/27/20 11:39 Prednisone 20 Mg Tab PO 05/28/20 12:01 30 mg 1200 [facility] Administration Sodium Chloride 10 ml 05/21/20 21:00 05/27/20 09:02 Flush - Normal Saline 10 Ml Syringe IVF 10 ml Q12HR [facility] Administration Thiamine HCl 100 mg 05/21/20 09:00 05/27/20 08:59 Thiamine 100 Mg Tab PO 100 mg DAILY [facility] Administration Tolvaptan 15 mg 05/25/20 09:00 05/27/20 08:58 Tolvaptan 30 Mg Tab PO 15 mg DAILY [facility] Administration Hospitalist Exam Vitals: Vital Signs (12 hours) Temp Pulse Pulse Pulse Resp BP BP 05/27/20 11:49 134/74 02/14/21 11:40 97.8 F 64 16 05/27/20 09:57 77 70 146/82 H 05/27/20 09:05 05/27/20 08:54 97.6 F 72 18 05/27/20 08:13 61 14 05/27/20 08:00 128/67 05/27/20 05:06 98.1 F 61 12 BP BP BP Pulse Ox 05/27/20 11:49 05/27/20 11:40 134/74 95 05/27/20 09:57 128/67 05/27/20 09:05 96 05/27/20 08:54 128/67 96 05/27/20 08:13 98 05/27/20 08:00 05/27/20 05:06 150/85 H 97 Weight Weight 288 lb 1.6 oz General Appearance: NAD, awake alert Eye: anicteric sclera ENT: normocephalic atraumatic Neck: supple Heart: RRR, no murmur Respiratory: CTAB, no wheezes, no rales, no ronchi Gastrointestinal: soft, non-tender, non-distended Gastrointestinal - other findings: Obese Extremities: no clubbing, no edema Neurological: cranial nerve grossly intact Psychiatric: normal affect, normal behavior Hosp A/P (1) Atrial fibrillation with RVR Code(s): I48.91 - UNSPECIFIED ATRIAL FIBRILLATION Status: Acute Plan: As per impression (2) CHF (congestive heart failure) Code(s): I50.9 - HEART FAILURE, UNSPECIFIED Status: Acute Qualifiers: Heart failure type: systolic Heart failure chronicity: acute on chronic Qualified Code(s): I50.23 - Acute on chronic systolic (congestive) heart failure Plan: As per impression (3) COPD (chronic obstructive pulmonary disease) with acute bronchitis Code(s): J44.0 - CHR OBSTRUCTIVE PULMON DISEASE WITH (ACUTE) LOWER RESP INFCT; J20.9 - ACUTE BRONCHITIS, UNSPECIFIED Status: Acute Plan: As per impression (4) COPD exacerbation Code(s): J44.1 - CHRONIC OBSTRUCTIVE PULMONARY DISEASE W (ACUTE) EXACERBATION Status: Acute Plan: As per impression (5) Tobacco abuse Code(s): Z72.0 - TOBACCO USE Status: Acute Plan: As per impression (6) Alcohol abuse Code(s): F10.10 - ALCOHOL ABUSE, UNCOMPLICATED Status: Chronic Plan: As per impression (7) Hyponatremia Code(s): E87.1 - HYPO-OSMOLALITY AND HYPONATREMIA Status: Chronic Plan: As per impression - Plan Assessment Patient is a 59-year-old male with obesity, chronic alcoholism, HTN, atrial fibrillation and noncompliant on eliquis, COPD who presented to the hospital with his sister for evaluation of bilateral lower extremity edema and discoloration. Gave a history of negative coronary angiogram several years ago. Work-up in the ER was significant for rapid atrial fibrillation for which he underwent DCCV and PATI. He is currently in sinus rhythm and on Coreg/amiodarone and Eliquis. Rest of hospital course marked by hyponatremia for which nephrology was consulted. Is doing well on tolvaptan. At this time, patient is currently medically cleared pending placement to a rehab facility. Lack of insurance is posing a barrier to discharge. Possible alternatives include home health for PT/OT Rapid atrial fibrillation Acute on chronic systolic CHF -2D echo 05/21/2020 with EF of 35- 40% Obesity COPD with bronchitis Hypertension Chronic alcoholism Hyponatremia Plan: Continue telemetry monitoring while in-house Continue amiodarone, Coreg and Eliquis for atrial fibrillation Famotidine for GI prophylaxis PT/OT while in-house Continue tolvaptan for hyponatremia. Use for a total of 30 days to avoid hepatotoxicity Discontinue Librium As needed temazepam for sleep Folic acid, thiamine and multivitamins for chronic alcoholism DuoNebs as needed for wheezing and shortness of breath Continue taper dose of steroid Appreciate case management involvement for placement
--- NOTE | 2020-05-27 14:58 | PDOC.CPN ---
- Subjective Date: 05/27/20 Time: 14:57 Interval history: Patient sitting up at bedside, he is feeling good today. He states that he worked with PT today and states he feels like his weakness is better today, he states he did better with PT today vs yesterday. - Review of Systems General: denies: fever/chills, weight/appetite/sleep changes, night sweats, fatigue Respiratory: denies: cough, congestion, shortness of breath, exercise intolerance Cardiovascular: denies: chest pain, palpitation, edema, paroxysmal nocturnal dyspnea, orthopnea Gastrointestinal: denies: nausea, vomiting, diarrhea, constipation, abd pain, GI bleeding Musculoskeletal: denies: pain, tenderness, stiffness, swelling, arthritis/arthralgias Neurological: denies: numbness, syncope, seizure, weakness - Objective Allergies/Adverse Reactions: Allergies Allergy/AdvReac Type Severity Reaction Status Date / Time grass pollen Allergy Verified 05/20/20 15:40 Visit Medications: Current Medications Acetaminophen (Acetaminophen 325 Mg Tab) 650 mg PO Q4H PRN PRN Reason: Headache/Fever/Mild Pain (1-3) Hydrocodone Bitart/Acetaminophen (Hydrocodone/Acetaminophen 7.5/325 Mg Tablet) 1 tab PO Q4H PRN PRN Reason: Moderate Pain (4-6) Albuterol/Ipratropium (Ipratropium/Albuterol Sulfate 3 Ml Neb) 3 ml NEB [id number] [facility] Last Admin: 05/27/20 13:35 Dose: Not Given Documented by: Amiodarone HCl (Amiodarone 200 Mg Tab) 400 mg PO BID [facility] Last Admin: 05/27/20 08:58 Dose: 400 mg Documented by: Apixaban (Apixaban 5 Mg Tab) 5 mg PO BID [facility] Last Admin: 05/27/20 08:59 Dose: 5 mg Documented by: Aspirin (Aspirin Chewable 81 Mg Tab) 81 mg PO DAILY [facility] Last Admin: 05/27/20 08:58 Dose: 81 mg Documented by: Bisacodyl (Bisacodyl 5 Mg Tab) 10 mg PO DAILYPRN PRN PRN Reason: Constipation Bupropion HCl (Bupropion 150 Mg Sr Tab) 150 mg PO BID [facility] Last Admin: 05/27/20 08:57 Dose: 150 mg Documented by: Carvedilol (Carvedilol 25 Mg Tab) 25 mg PO BID-[facility] Last Admin: 05/27/20 08:59 Dose: 25 mg Documented by: Famotidine (Famotidine 20 Mg Tab) 20 mg PO BID [facility] Last Admin: 05/27/20 08:59 Dose: 20 mg Documented by: Folic Acid (Folic Acid 1 Mg Tab) 1 mg PO DAILY [facility] Last Admin: 05/27/20 08:59 Dose: 1 mg Documented by: Furosemide (Furosemide 20 Mg Tab) 40 mg PO 0900,1400 [facility] Last Admin: 05/27/20 08:59 Dose: 40 mg Documented by: Iron/Minerals/Multivitamins (Multivitamin W/ Minerals 1 Tab) 1 tab PO DAILY [facility] Last Admin: 05/27/20 08:58 Dose: 1 tab Documented by: Lisinopril (Lisinopril 5 Mg Tab) 5 mg PO BID [facility] Last Admin: 05/27/20 08:59 Dose: 5 mg Documented by: Ondansetron HCl (Ondansetron Odt 4 Mg Tab) 4 mg PO Q6H PRN PRN Reason: Nausea/Vomiting Potassium Chloride (Potassium Chloride 20 Meq Tab) 40 meq PO BID-[facility] Last Admin: 05/27/20 08:58 Dose: 40 meq Documented by: Prednisone (Prednisone 20 Mg Tab) 30 mg PO 1200 [facility] Stop: 05/28/20 12:01 Last Admin: 05/27/20 11:39 Dose: 30 mg Documented by: Prednisone (Prednisone 20 Mg Tab) 20 mg PO 1200 [facility] Stop: 05/31/20 12:01 Prednisone (Prednisone 5 Mg Tab) 10 mg PO 1200 [facility] Stop: 06/03/20 12:01 Prednisone (Prednisone 5 Mg Tab) 5 mg PO 1200 [facility] Stop: 06/06/20 12:01 Sodium Chloride (Flush - Normal Saline 10 Ml Syringe) 10 ml IVF Q12HR [facility] Last Admin: 05/27/20 09:02 Dose: 10 ml Documented by: Sodium Chloride (Flush - Normal Saline 10 Ml Syringe) 10 ml IVF PRN PRN PRN Reason: Saline Flush Temazepam (Temazepam 15 Mg Cap) 15 mg PO HSPRN PRN PRN Reason: Insomnia Thiamine HCl (Thiamine 100 Mg Tab) 100 mg PO DAILY [facility] Last Admin: 05/27/20 08:59 Dose: 100 mg Documented by: Tolvaptan (Tolvaptan 30 Mg Tab) 15 mg PO DAILY [facility] Last Admin: 05/27/20 08:58 Dose: 15 mg Documented by: Vital Signs & Weight: Vital Signs Temp Pulse Pulse Pulse Resp BP BP 05/27/20 11:49 134/74 05/27/20 11:40 97.8 F 64 16 05/27/20 09:57 77 70 146/82 H 05/27/20 09:05 05/27/20 08:54 97.6 F 72 18 05/27/20 08:13 61 14 05/27/20 08:00 128/67 05/27/20 05:06 98.1 F 61 12 BP BP BP Pulse Ox 05/27/20 11:49 05/27/20 11:40 134/74 95 05/27/20 09:57 128/67 05/27/20 09:05 96 05/27/20 08:54 128/67 96 05/27/20 08:13 98 05/27/20 08:00 05/27/20 05:06 150/85 H 97 Weight 288 lb 1.6 oz - Quality Measures Condition: Heart Failure CV meds: Beta Christin: Yes, LUIS/ARB: Yes, ASA: Yes, Anticoagulant: Yes - Physical Exam General: alert & oriented x3, appears well, no apparent distress HEENT: mucus membranes moist Neck: supple neck, no bruit Cardiac: regular rate and rhythm, no murmur, regular rate, S1/S2 Lungs: clear to auscultation, normal breath sounds, normal exam, no wheeze, rales, rhonchi Neuro: grossly intact Abdomen: active bowel sounds, soft, non-tender Extremities: no cyanosis, no clubbing, 1+ LE edema Skin: clear, other (scattered bruising to bilateral arms) Musculoskeletal: no pain - Labs Result Diagrams: 05/26/20 03:45 05/27/20 03:19 Troponin/CKMB Troponin I 0.014 ng/mL (< 0.028) 05/21/20 05:01 - EKG Interpretation EKG Method: Telemetry (SR, BBB, HR 70's) EKG: sinus rhythm - Assessment/Plan Assessment/Plan: 1. Atrial fibrillation with RVR: converted to NSR, on Amiodarone, on Eliquis- he is supposed to go to inpatient rehab per Hospitalist note due to lower extremity weakness, he is a fall risk, if he is unable to go to facility, may need to consider alternative to OAC for high risk of falls 2. History of cardioversion 3. CHF: EF 35-40%, he is on Coreg & lisinopril, he cannot afford Entresto 4. HTN: well controlled at this time 5. Smoker 6. Non-compliance 7. ETOH abuse Dr. 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 Waiting to go to rehab. F/U with CHF clinic in one week after discharge
--- NOTE | 2020-05-27 20:24 | RAD ---
LEFT HIP TWO VIEWS: History: Injury from a fall. FINDINGS: Left hip osteoarthrosis. No acute fracture or dislocation. IMPRESSION: No acute fracture or dislocation. Left hip joint osteoarthrosis. POS: RRE
--- NOTE | 2020-05-27 20:53 | CT ---
CT BRAIN WITHOUT CONTRAST: History: Unwitnessed fall with head trauma Technique: Multiple contiguous axial images were obtained in a CT of the brain without contrast. FINDINGS: The brain is normal in morphology and attenuation without focal lesions or confluent area of infarcti on. There is no hydrocephalus, intracranial hemorrhage, or extraaxial fluid collections. The calvarium and overlying soft tissues are unremarkable. There is mucosal thickening of the right m axillary sinus. The other paranasal sinuses and mastoid air cells are well aerated. IMPRESSION: No evidence of acute intracranial abnormality. POS: EAA
[2020-05-28] MEDS ORDERED: HYDROcodone/Acetaminophen 7.5/325 mg Tablet ONE (02:48)
[2020-05-28] MEDS ORDERED: Aspirin Chewable 81 MG TAB ONE (07:35)
[2020-05-28] MEDS ORDERED: Amiodarone 200 MG TAB ONE (07:36)
[2020-05-28] MEDS ORDERED: Carvedilol 25 MG TAB ONE (07:36)
[2020-05-28] MEDS ORDERED: Apixaban 5 MG TAB ONE (07:36)
[2020-05-28] MEDS ORDERED: Potassium Chloride 20 MEQ TAB ONE (07:37)
[2020-05-28] MEDS ORDERED: Furosemide 40 MG TAB ONE (07:37)
[2020-05-28] MEDS ORDERED: Folic Acid 1 MG TAB ONE (07:37)
[2020-05-28] MEDS ORDERED: Multivitamin W/ Minerals 1 TAB ONE (07:39)
[2020-05-28] MEDS ORDERED: Thiamine 100 MG TAB ONE (07:39)
[2020-05-28] MEDS ORDERED: Famotidine 20 MG TAB ONE (07:39)
[2020-05-28] MEDS ORDERED: predniSONE 20 MG TAB ONE (07:39)
[2020-05-28] MEDS ORDERED: Bupropion 150 MG XL TAB ONE (07:42)
[2020-05-28] MEDS ORDERED: Lisinopril 5 MG TAB ONE (07:42)
[2020-05-28] MEDS: Aspirin Chewable 81 MG TAB PO SCH (10:46)
[2020-05-28] MEDS: Multivitamin W/ Minerals 1 TAB PO SCH (10:46)
[2020-05-28] MEDS: Apixaban 5 MG TAB PO SCH ×2 (10:46→21:17)
[2020-05-28] MEDS: Potassium Chloride 20 MEQ TAB PO SCH ×2 (10:46→15:50)
[2020-05-28] MEDS: Folic Acid 1 MG TAB PO SCH (10:46)
[2020-05-28] MEDS: Famotidine 20 MG TAB PO SCH ×2 (10:46→21:17)
[2020-05-28] MEDS: Bupropion 150 MG SR TAB PO SCH ×2 (10:46→21:16)
[2020-05-28] MEDS: predniSONE 20 MG TAB PO SCH (11:00)
--- NOTE | 2020-05-28 12:31 | PDOC.HOSPP ---
- Subjective Encounter Date: 05/28/20 Subjective: And had a fall yesterday. He states that he fell onto his left side. CT head was without acute intracranial abnormality. Left hip radiograph did not show any dislocation or fractures. Patient's mental status is at baseline during my encounter with him today. However, he was hypotensive. Several medications held including amiodarone, Coreg, Lasix, tolvaptan and lisinopril. - Objective Vital Signs & Weight: Vital Signs (12 hours) Pulse Resp Pulse Ox 05/28/20 07:10 71 16 98 Weight Weight 288 lb 1.6 oz I&O: 05/27/20 05/28/20 05/29/20 06:59 06:59 06:59 Intake Total 1910 1700 Output Total 1553 1999 Balance 357 -300 Result Diagrams: 05/26/20 03:45 05/27/20 03:19 Hospitalist ROS - Medication Medications: Active Medications Generic Name Dose Route Start Last Admin Trade Name Freq PRN Reason Stop Dose Admin Albuterol/Ipratropium 3 ml 05/20/20 01:00 05/28/20 07:10 Ipratropium/Albuterol Sulfate 3 Ml Neb NEB 3 ml [id number] [facility] Administration Amiodarone HCl 400 mg 05/24/20 09:00 05/27/20 20:56 Amiodarone 200 Mg Tab PO 400 mg BID [facility] Administration Apixaban 5 mg 05/19/20 21:00 05/27/20 20:56 Apixaban 5 Mg Tab PO 5 mg BID [facility] Administration Aspirin 81 mg 05/20/20 09:00 05/27/20 08:58 Aspirin Chewable 81 Mg Tab PO 81 mg DAILY [facility] Administration Bupropion HCl 150 mg 05/24/20 09:00 05/27/20 20:56 Bupropion 150 Mg Sr Tab PO 150 mg BID [facility] Administration Carvedilol 25 mg 05/24/20 17:00 05/27/20 16:32 Carvedilol 25 Mg Tab PO 25 mg BID-WM [facility] Administration Famotidine 20 mg 05/19/20 21:00 05/27/20 20:56 Famotidine 20 Mg Tab PO 20 mg BID [facility] Administration Folic Acid 1 mg 05/21/20 09:00 05/27/20 08:59 Folic Acid 1 Mg Tab PO 1 mg DAILY [facility] Administration Furosemide 40 mg 05/20/20 09:00 05/27/20 16:32 Furosemide 20 Mg Tab PO 40 mg 0900,1400 [facility] Administration Iron/Minerals/Multivitamins 1 tab 05/21/20 09:00 05/27/20 08:58 Multivitamin W/ Minerals 1 Tab PO 1 tab DAILY [facility] Administration Lisinopril 5 mg 05/25/20 21:00 05/27/20 20:56 Lisinopril 5 Mg Tab PO 5 mg BID [facility] Administration Potassium Chloride 40 meq 05/21/20 17:00 05/27/20 16:32 Potassium Chloride 20 Meq Tab PO 40 meq BID-WM [facility] Administration Prednisone 30 mg 05/26/20 12:00 05/27/20 11:39 Prednisone 20 Mg Tab PO 05/28/20 12:01 30 mg 1200 [facility] Administration Sodium Chloride 10 ml 05/21/20 21:00 05/27/20 20:56 Flush - Normal Saline 10 Ml Syringe IVF 10 ml Q12HR [facility] Administration Thiamine HCl 100 mg 05/21/20 09:00 05/27/20 08:59 Thiamine 100 Mg Tab PO 100 mg DAILY [facility] Administration Tolvaptan 15 mg 05/25/20 09:00 05/27/20 08:58 Tolvaptan 30 Mg Tab PO 15 mg DAILY [facility] Administration Hospitalist Exam Vitals: Vital Signs (12 hours) Pulse Resp Pulse Ox 05/28/20 07:10 71 16 98 Weight Weight 288 lb 1.6 oz General Appearance: NAD, awake alert Eye: anicteric sclera ENT: normocephalic atraumatic Neck: supple Heart: RRR, no murmur Respiratory: CTAB, no wheezes, no rales, no ronchi Gastrointestinal: soft, non-tender, non-distended Extremities - other findings: Lateral stasis dermatitis, left more than right Neurological: cranial nerve grossly intact Psychiatric: normal affect, normal behavior Hosp A/P (1) Atrial fibrillation with RVR Code(s): I48.91 - UNSPECIFIED ATRIAL FIBRILLATION Status: Acute (2) CHF (congestive heart failure) Code(s): I50.9 - HEART FAILURE, UNSPECIFIED Status: Acute Qualifiers: Heart failure type: systolic Heart failure chronicity: acute on chronic Qualified Code(s): I50.23 - Acute on chronic systolic (congestive) heart failure (3) COPD (chronic obstructive pulmonary disease) with acute bronchitis Code(s): J44.0 - CHR OBSTRUCTIVE PULMON DISEASE WITH (ACUTE) LOWER RESP INFCT; J20.9 - ACUTE BRONCHITIS, UNSPECIFIED Status: Acute (4) COPD exacerbation Code(s): J44.1 - CHRONIC OBSTRUCTIVE PULMONARY DISEASE W (ACUTE) EXACERBATION Status: Acute (5) Tobacco abuse Code(s): Z72.0 - TOBACCO USE Status: Acute (6) Alcohol abuse Code(s): F10.10 - ALCOHOL ABUSE, UNCOMPLICATED Status: Chronic (7) Hyponatremia Code(s): E87.1 - HYPO-OSMOLALITY AND HYPONATREMIA Status: Chronic - Plan Assessment Patient is a 59-year-old male with obesity, chronic alcoholism, HTN, atrial fibrillation and noncompliant on eliquis, COPD who presented to the hospital with his sister for evaluation of bilateral lower extremity edema and discoloration. Gave a history of negative coronary angiogram several years ago. Work-up in the ER was significant for rapid atrial fibrillation for which he underwent DCCV and PATI. He is currently in sinus rhythm and on Coreg/amiodarone and Eliquis. Rest of hospital course marked by hyponatremia for which nephrology was consulted. Placed on tolvaptan by nephrology. Fell on 05/27/20 no trauma noted. Hypotensive the following day. 2D echo done during this admission. Please see below for reports Fall Rapid atrial fibrillation Acute on chronic systolic CHF -2D echo 05/21/2020 with EF of 35- 40% Obesity COPD with bronchitis Hypertension Chronic alcoholism Hyponatremia Plan: Initiate fall precautions Hold Lasix, Coreg, amiodarone, tolvaptan and lisinopril Give a 500 cc bolus of normal saline I will check for orthostatic vitals Continue telemetry monitoring while in-house Continue Eliquis for atrial fibrillation Famotidine for GI prophylaxis PT/OT while in-house As needed temazepam for sleep Continue folic acid, thiamine and multivitamins for chronic alcoholism DuoNebs as needed for wheezing and shortness of breath Continue taper dose of steroid Appreciate case management involvement for placement. Patient is currently uninsured. Management is working for placement to rehab. He cannot take care of him.
[2020-05-28] MEDS: Amiodarone 200 MG TAB PO SCH ×2 (15:33→21:17)
[2020-05-28] MEDS: Furosemide 20 MG TAB PO SCH (15:35)
[2020-05-28] MEDS: TOLVAPTAN 30 MG TAB PO SCH (15:36)
[2020-05-28] MEDS: Carvedilol 25 MG TAB PO SCH (15:37)
[2020-05-28] MEDS: Lisinopril 5 MG TAB PO SCH (15:37)
[2020-05-28 18:02] LABS: Anion Gap 16 mmol/L (10-20); BUN (Urea Nitrogen) 28 mg/dL (8.4-25.7); Calc. Creatinine Clearance 125 mL/min (70-130); Calcium 8.8 mg/dL (7.8-10.44); Carbon Dioxide 27 mmol/L (23-31); Chloride 95 mmol/L (98-107); Glucose 74 mg/dL (80-115); Sodium 134 mmol/L (136-145)
--- NOTE | 2020-05-28 21:45 | PRG ---
DATE OF SERVICE: 05/28/2020 SUBJECTIVE: The patient is noted with the following vital signs. OBJECTIVE: VITAL SIGNS: Afebrile. Temperature 98, pulse 79, respiratory rate of 16, O2 saturation of 95%, blood pressure 133/70. HEENT: Unremarkable. CARDIOVASCULAR SYSTEM: First and second heart sounds were heard. RESPIRATORY SYSTEM: Clear to auscultation. DIGESTIVE SYSTEM: Revealed a benign abdomen. EXTREMITIES: No peripheral edema. SKIN: No new gross rash. LYMPHATICS: No peripheral lymphadenopathy. 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 PLAN: 1. We will continue with current management. 2. Further management to be dependent on the clinical course. Job ID: [id number]
[2020-05-29 04:04] LABS: Anion Gap 11 mmol/L (10-20); BUN (Urea Nitrogen) 27 mg/dL (8.4-25.7); Calc. Creatinine Clearance 175 mL/min (70-130); Calcium 8.4 mg/dL (7.8-10.44); Carbon Dioxide 27 mmol/L (23-31); Chloride 97 mmol/L (98-107); Glucose 88 mg/dL (80-115); Potassium 4.1 mmol/L (3.5-5.1); Sodium 131 mmol/L (136-145)
[2020-05-29] MEDS: Acetaminophen 325 MG TAB PO PRN ×2 (04:11→20:18)
[2020-05-29] MEDS: Thiamine 100 MG TAB PO SCH (08:33)
[2020-05-29] MEDS: Potassium Chloride 20 MEQ TAB PO SCH ×2 (08:33→17:31)
[2020-05-29] MEDS: Apixaban 5 MG TAB PO SCH ×2 (08:34→20:21)
[2020-05-29] MEDS: Folic Acid 1 MG TAB PO SCH (08:34)
[2020-05-29] MEDS: Amiodarone 200 MG TAB PO SCH ×2 (08:34→20:16)
[2020-05-29] MEDS: Famotidine 20 MG TAB PO SCH ×2 (08:34→20:16)
[2020-05-29] MEDS: Furosemide 20 MG TAB PO SCH ×2 (08:34→14:47)
[2020-05-29] MEDS: Aspirin Chewable 81 MG TAB PO SCH (08:35)
[2020-05-29] MEDS: Multivitamin W/ Minerals 1 TAB PO SCH (08:35)
[2020-05-29] MEDS: Bupropion 150 MG SR TAB PO SCH ×2 (08:36→20:16)
[2020-05-29 08:37] LABS: #Eosinphils 0.1 thou/uL (0.0-0.7); #Lymphocytes 1.2 thou/uL (1.20-3.40); #Monocytes 0.9 thou/uL (0.11-0.59); #Neutrophils 9.1 thou/uL (1.40-6.50); %Basophils 0.3 % (0.0-1.0); %Eosinophils 0.5 % (0.0-10.0); %Lymphocytes 10.9 % (21.0-51.0); %Monocytes 8.2 % (0.0-10.0); %Neutrophils 80.1 % (42.0-75.0); Hemoglobin 11.3 g/dL (14.0-18.0); Mean Corpuscular HGB CONC 34.5 g/dL (32.0-36.0); Mean Platelet Volume 7.5 fL (7.4-10.4); Platelet Count 180 thou/uL (130-400); RBC Distribution Width 12.8 % (11.5-14.5); Red Blood Cell (RBC) Count 3.24 mill/uL (4.70-6.10); White Blood Cell (WBC) Count 11.4 thou/uL (4.8-10.8)
[2020-05-29] MEDS: Carvedilol 6.25 MG TAB PO SCH ×2 (08:39→17:31)
--- NOTE | 2020-05-29 11:10 | PDOC.HOSPP ---
- Subjective Encounter Date: 05/29/20 Subjective: No acute events overnight. Patient seen today working with physical therapy. Is doing well on room air. - Objective Vital Signs & Weight: Vital Signs (12 hours) Temp Pulse Resp BP BP Pulse Ox 05/29/20 07:54 95 05/29/20 07:53 120/58 L 05/29/20 07:16 97.8 F 68 16 120/58 L 95 05/29/20 04:06 98 F 69 18 129/64 96 05/29/20 01:00 73 16 97 05/29/20 00:00 69 Weight Weight 290 lb 9.6 oz I&O: 05/28/20 05/29/20 05/30/20 06:59 06:59 06:59 Intake Total 1700 1710 Output Total 2000 1200 Balance -300 510 Result Diagrams: 05/29/20 08:23 05/29/20 03:16 Hospitalist ROS - Medication Medications: Active Medications Generic Name Dose Route Start Last Admin Trade Name Freq PRN Reason Stop Dose Admin Acetaminophen 650 mg 05/19/20 19:59 05/29/20 04:11 Acetaminophen 325 Mg Tab PO 650 mg Q4H PRN Administration Headache/Fever/Mild Pain (1-3) Albuterol/Ipratropium 3 ml 05/20/20 01:00 05/29/20 08:18 Ipratropium/Albuterol Sulfate 3 Ml Neb NEB Not Given Q1MK-FS [facility] Amiodarone HCl 400 mg 05/24/20 09:00 05/29/20 08:34 Amiodarone 200 Mg Tab PO 400 mg BID [facility] Administration Apixaban 5 mg 05/19/20 21:00 05/29/20 08:34 Apixaban 5 Mg Tab PO 5 mg BID [facility] Administration Aspirin 81 mg 05/20/20 09:00 05/29/20 08:35 Aspirin Chewable 81 Mg Tab PO 81 mg DAILY [facility] Administration Bupropion HCl 150 mg 05/24/20 09:00 05/29/20 08:36 Bupropion 150 Mg Sr Tab PO 150 mg BID [facility] Administration Carvedilol 6.25 mg 05/29/20 08:00 05/29/20 08:39 Carvedilol 6.25 Mg Tab PO 6.25 mg BID- [facility] Administration Famotidine 20 mg 05/19/20 21:00 05/29/20 08:34 Famotidine 20 Mg Tab PO 20 mg BID [facility] Administration Folic Acid 1 mg 05/21/20 09:00 05/29/20 08:34 Folic Acid 1 Mg Tab PO 1 mg DAILY [facility] Administration Furosemide 40 mg 05/20/20 09:00 05/29/20 08:34 Furosemide 20 Mg Tab PO 40 mg 0900,1400 [facility] Administration Iron/Minerals/Multivitamins 1 tab 05/21/20 09:00 05/29/20 08:35 Multivitamin W/ Minerals 1 Tab PO 1 tab DAILY [facility] Administration Potassium Chloride 40 meq 05/21/20 17:00 05/29/20 08:33 Potassium Chloride 20 Meq Tab PO 40 meq BID-WM [facility] Administration Sodium Chloride 10 ml 05/21/20 21:00 05/29/20 09:20 Flush - Normal Saline 10 Ml Syringe IVF 10 ml Q12HR [facility] Administration Thiamine HCl 100 mg 05/21/20 09:00 05/29/20 08:33 Thiamine 100 Mg Tab PO 100 mg DAILY [facility] Administration Tolvaptan 15 mg 05/25/20 09:00 05/28/20 15:36 Tolvaptan 30 Mg Tab PO Not Given DAILY [facility] Hospitalist Exam Vitals: Vital Signs (12 hours) Temp Pulse Resp BP BP Pulse Ox 05/29/20 07:54 95 05/29/20 07:53 120/58 L 05/29/20 07:16 97.8 F 68 16 120/58 L 95 05/29/20 04:06 98 F 69 18 129/64 96 05/29/20 01:00 73 16 97 05/29/20 00:00 69 Weight Weight 290 lb 9.6 oz General Appearance: NAD General - other findings: Slightly deconditioned, obese Eye: anicteric sclera ENT: normocephalic atraumatic Heart: RRR, no murmur, no gallops, no rubs Respiratory: CTAB, no wheezes, no rales, no ronchi Gastrointestinal: soft, non-tender, non-distended, normal bowel sounds Skin - other findings: Multiple areas of ecchymosis LLL of abdomen, left buttock and thigh Psychiatric: normal affect, normal behavior Hosp A/P (1) Atrial fibrillation with RVR Code(s): I48.91 - UNSPECIFIED ATRIAL FIBRILLATION Status: Acute (2) CHF (congestive heart failure) Code(s): I50.9 - HEART FAILURE, UNSPECIFIED Status: Acute Qualifiers: Heart failure type: systolic Heart failure chronicity: acute on chronic Qualified Code(s): I50.23 - Acute on chronic systolic (congestive) heart failure (3) COPD (chronic obstructive pulmonary disease) with acute bronchitis Code(s): J44.0 - CHR OBSTRUCTIVE PULMON DISEASE WITH (ACUTE) LOWER RESP INFCT; J20.9 - ACUTE BRONCHITIS, UNSPECIFIED Status: Acute (4) COPD exacerbation Code(s): J44.1 - CHRONIC OBSTRUCTIVE PULMONARY DISEASE W (ACUTE) EXACERBATION Status: Acute (5) Tobacco abuse Code(s): Z72.0 - TOBACCO USE Status: Acute (6) Alcohol abuse Code(s): F10.10 - ALCOHOL ABUSE, UNCOMPLICATED Status: Chronic (7) Hyponatremia Code(s): E87.1 - HYPO-OSMOLALITY AND HYPONATREMIA Status: Chronic - Plan Assessment Patient is a 59-year-old male with obesity, chronic alcoholism, HTN, atrial fibrillation and noncompliant on eliquis, COPD who presented to the hospital with his sister for evaluation of bilateral lower extremity edema and discoloration. Gave a history of negative coronary angiogram several years ago. Work-up in the ER was significant for rapid atrial fibrillation for which he underwent DCCV and PATI. He is currently in sinus rhythm and on Coreg/amiodarone and Eliquis. Rest of hospital course marked by hyponatremia for which nephrology was consulted. Placed on tolvaptan by nephrology. Fell on 05/27/20. CT head was unremarkable for acute intracranial abnormality, left hip did not show any dislocation or fractures. He has a visible area of ecchymosis on his left side. Hypotensive the following day, repeat CBC shows two-point drop in hemoglobin. Fall Rapid atrial fibrillation Acute on chronic systolic CHF -2D echo 05/21/2020 with EF of 35- 40% Obesity COPD with bronchitis Hypertension Chronic alcoholism Hyponatremia Plan: Will obtain a CT of the left hip to rule out bleeding since patient is on Eliquis Repeat CBC this afternoon, Hold eliquis if Hb continues to drop Continue fall precautions Slowly resume CHF regimen starting with coreg. Continue holding lisinopril Continue amiodarone Continue telemetry monitoring while in-house Famotidine for GI prophylaxis As needed temazepam for sleep Continue folic acid, thiamine and multivitamins for chronic alcoholism DuoNebs as needed for wheezing and shortness of breath Continue taper dose of steroid PT/OT while in-house. Case management will try and apply for [facility] re[facility] bed. Patient is currently uninsured
[2020-05-29] MEDS: TOLVAPTAN 30 MG TAB PO SCH (11:32)
[2020-05-29] MEDS: predniSONE 20 MG TAB PO SCH (11:33)
--- NOTE | 2020-05-29 14:39 | CT ---
CT Pelvis WO Con HISTORY: Left hip injury COMPARISON: Plain film examination done 05/27/2020 FINDINGS: A fat-containing paraumbilical hernia is incidentally noted. Minimal diverticulosis of the sigmoid colon is seen. No free fluid within the pelvis. No evidence of any fracture the bony pelvic ring. No hip fracture. Arthritic changes of both hips. There is a large mixed attenuation density seen along the fascial planes posterior to the tensor fasc ia guillermo on the left. This has high density elements and is compatible with a hematoma. It measures as much is 10 cm in dimension. This has the characteristics of Hinds-Adam type lesion related to a degloving injury along the fascial planes. There is also posterior extension deep to the gluteus gadiel musculature and anterior extension directly anterior to the proximal left femoral shaft. The hematoma also continues into the subcutaneous tissue. IMPRESSION: Large area of fairly acute appearing hematoma adjacent to the left hip. The appearance is suggestive of a Hinds-Esther type lesion.
[2020-05-29 16:26] LABS: #Lymphocytes 0.5 thou/uL (1.20-3.40); #Monocytes 0.8 thou/uL (0.11-0.59); #Neutrophils 9.2 thou/uL (1.40-6.50); %Basophils 0.3 % (0.0-1.0); %Eosinophils 0.1 % (0.0-10.0); %Lymphocytes 5.1 % (21.0-51.0); %Monocytes 7.9 % (0.0-10.0); %Neutrophils 86.6 % (42.0-75.0); Hemoglobin 11.3 g/dL (14.0-18.0); Mean Corpuscular HGB CONC 33.7 g/dL (32.0-36.0); Mean Corpuscular Hemoglobin 33.6 pg (27.0-31.0); Mean Corpuscular Volume 99.6 fL (78.0-98.0); Mean Platelet Volume 7.6 fL (7.4-10.4); Platelet Count 193 thou/uL (130-400); RBC Distribution Width 12.6 % (11.5-14.5); Red Blood Cell (RBC) Count 3.35 mill/uL (4.70-6.10); White Blood Cell (WBC) Count 10.6 thou/uL (4.8-10.8)
--- NOTE | 2020-05-29 22:21 | PRG ---
DATE OF SERVICE: 05/29/2020 SUBJECTIVE: Patient noted with the following vital signs. OBJECTIVE: VITAL SIGNS: Afebrile, temperature 98; pulse 89; respiratory rate of 18; O2 saturation of 100% with a blood pressure 124/73. HEENT EXAMINATION: Unremarkable. RESPIRATORY SYSTEM: Clear to auscultation. DIGESTIVE SYSTEM: Revealed a benign abdomen. Positive bowel sounds. EXTREMITIES: No peripheral edema. SKIN EXAMINATION: No new gross rash. LYMPHATICS: No peripheral lymphadenopathy. IMPRESSION: 1. Hyponatremia in the context of . 2. Syndrome of inappropriate antidiuretic hormone secretion. 3. Congestive heart failure . Job ID: [id number]
[2020-05-30 05:39] LABS: Anion Gap 12 mmol/L (10-20); BUN (Urea Nitrogen) 23 mg/dL (8.4-25.7); Calc. Creatinine Clearance 183 mL/min (70-130); Calcium 8.6 mg/dL (7.8-10.44); Carbon Dioxide 27 mmol/L (23-31); Chloride 99 mmol/L (98-107); Glucose 83 mg/dL (80-115); Potassium 4.3 mmol/L (3.5-5.1); Sodium 134 mmol/L (136-145)
[2020-05-30] MEDS: Carvedilol 6.25 MG TAB PO SCH ×2 (07:54→16:04)
[2020-05-30] MEDS: Furosemide 20 MG TAB PO SCH ×2 (07:54→13:06)
[2020-05-30] MEDS: Bupropion 150 MG SR TAB PO SCH ×2 (07:54→20:30)
[2020-05-30] MEDS: Thiamine 100 MG TAB PO SCH (07:55)
[2020-05-30] MEDS: TOLVAPTAN 30 MG TAB PO SCH (07:55)
[2020-05-30] MEDS: Folic Acid 1 MG TAB PO SCH (07:56)
[2020-05-30] MEDS: Potassium Chloride 20 MEQ TAB PO SCH ×2 (07:56→16:04)
[2020-05-30] MEDS: Multivitamin W/ Minerals 1 TAB PO SCH (07:56)
[2020-05-30] MEDS: Amiodarone 200 MG TAB PO SCH ×2 (07:56→20:30)
[2020-05-30] MEDS: Aspirin Chewable 81 MG TAB PO SCH (07:57)
[2020-05-30] MEDS: Famotidine 20 MG TAB PO SCH ×2 (07:57→20:30)
[2020-05-30] MEDS: Apixaban 5 MG TAB PO SCH ×2 (08:40→20:30)
[2020-05-30 09:38] LABS: #Eosinphils 0.1 thou/uL (0.0-0.7); #Lymphocytes 0.9 thou/uL (1.20-3.40); #Monocytes 0.6 thou/uL (0.11-0.59); #Neutrophils 7.8 thou/uL (1.40-6.50); %Basophils 0.1 % (0.0-1.0); %Eosinophils 0.9 % (0.0-10.0); %Lymphocytes 9.8 % (21.0-51.0); %Monocytes 5.9 % (0.0-10.0); %Neutrophils 83.3 % (42.0-75.0); Hemoglobin 11.3 g/dL (14.0-18.0); Mean Corpuscular HGB CONC 33.4 g/dL (32.0-36.0); Mean Corpuscular Hemoglobin 33.5 pg (27.0-31.0); Mean Platelet Volume 7.5 fL (7.4-10.4); Platelet Count 218 thou/uL (130-400); RBC Distribution Width 12.8 % (11.5-14.5); Red Blood Cell (RBC) Count 3.37 mill/uL (4.70-6.10); White Blood Cell (WBC) Count 9.3 thou/uL (4.8-10.8)
[2020-05-30 09:44] LABS: INR-International Normal Ratio 1.1; PTT 31.8 sec (22.9-36.1); Prothrombin Time 14.7 sec (12.0-14.7)
[2020-05-30 12:39] VITALS: BMI 36.8
[2020-05-30] MEDS: predniSONE 20 MG TAB PO SCH (13:07)
--- NOTE | 2020-05-30 15:12 | EKG ---
Test Reason : S/P [employer]ARDI[employer]ERSION Blood Pressure : / mmHG Vent. Rate : 081 BPM Atrial Rate : 081 BPM P-R Int : 178 ms QRS Dur : 160 ms QT Int : 426 ms P-R-T Axes : 061 038 049 degrees QTc Int : 494 ms Normal sinus rhythm Right bundle branch block Cannot rule out Inferior infarct , age undetermined Abnormal ECG When compared with ECG of 19-MAY-2020 17:57, (Unconfirmed) Sinus rhythm has replaced Atrial fibrillation Vent. rate has decreased BY 50 BPM QRS duration has increased Confirmed by JOSE HUSAIN (2) on 05/30/2020 3:12:20 PM Referred By: LISHA Confirmed By:JOSE HUSAIN
--- NOTE | 2020-05-30 15:52 | PDOC.HOSPP ---
- Subjective Encounter Date: 05/30/20 Subjective: Patient seen this morning. He was comfortable in his bed making telephone phone calls. He did not appear in acute cardiopulmonary distress. Night events marked by downtrending hemoglobin. He has evidence of 10-cm hematoma of the left thigh after a fall incident the previous day. Patient was taking Eliquis at the time. - Objective Vital Signs & Weight: Vital Signs (12 hours) Temp Pulse Pulse Pulse Resp BP BP 05/30/20 12:55 97.4 F L 80 18 05/30/20 12:00 141/65 H 05/30/20 11:17 70 68 131/63 05/30/20 08:00 120/58 L 05/30/20 07:58 97.5 F L 71 18 05/30/20 07:34 71 14 BP BP Pulse Ox 05/30/20 12:55 141/65 H 94 L 05/30/20 12:00 05/30/20 11:17 123/69 05/30/20 08:00 96 05/30/20 07:58 120/58 L 96 05/30/20 07:34 97 Weight Admit Weight 314 lb 11.2 oz Weight 287 lb 3.2 oz I&O: 05/29/20 05/30/20 05/31/20 06:59 06:59 06:59 Intake Total 1710 1680 Output Total 1200 3475 Balance 510 -1795 Result Diagrams: 05/30/20 09:25 05/30/20 04:26 Hospitalist ROS - Medication Medications: Active Medications Generic Name Dose Route Start Last Admin Trade Name Freq PRN Reason Stop Dose Admin Acetaminophen 650 mg 05/19/20 19:59 05/29/20 20:18 Acetaminophen 325 Mg Tab PO 650 mg Q4H PRN Administration Headache/Fever/Mild Pain (1-3) Albuterol/Ipratropium 3 ml 05/20/20 01:00 05/30/20 14:25 Ipratropium/Albuterol Sulfate 3 Ml Neb NEB 3 ml [id number] BAIRON Administration Amiodarone HCl 400 mg 05/24/20 09:00 05/30/20 07:56 Amiodarone 200 Mg Tab PO 400 mg BID BAIRON Administration Apixaban 5 mg 05/19/20 21:00 05/30/20 08:40 Apixaban 5 Mg Tab PO Not Given BID BAIRON Aspirin 81 mg 05/20/20 09:00 05/30/20 07:57 Aspirin Chewable 81 Mg Tab PO 81 mg DAILY BAIRON Administration Bupropion HCl 150 mg 05/24/20 09:00 05/30/20 07:54 Bupropion 150 Mg Sr Tab PO 150 mg BID BAIRON Administration Carvedilol 6.25 mg 05/29/20 08:00 05/30/20 07:54 Carvedilol 6.25 Mg Tab PO 6.25 mg BID-WM BAIRON Administration Famotidine 20 mg 05/19/20 21:00 05/30/20 07:57 Famotidine 20 Mg Tab PO 20 mg BID BAIRON Administration Folic Acid 1 mg 05/21/20 09:00 05/30/20 07:56 Folic Acid 1 Mg Tab PO 1 mg DAILY BAIRON Administration Furosemide 40 mg 05/20/20 09:00 05/30/20 13:06 Furosemide 20 Mg Tab PO 40 mg 0900,1400 BAIRON Administration Iron/Minerals/Multivitamins 1 tab 05/21/20 09:00 05/30/20 07:56 Multivitamin W/ Minerals 1 Tab PO 1 tab DAILY BAIRON Administration Potassium Chloride 40 meq 05/21/20 17:00 05/30/20 07:56 Potassium Chloride 20 Meq Tab PO 40 meq BID-WM BAIRON Administration Prednisone 20 mg 05/29/20 12:00 05/30/20 13:07 Prednisone 20 Mg Tab PO 05/31/20 12:01 20 mg 1200 BAIRON Administration Sodium Chloride 10 ml 05/21/20 21:00 05/30/20 07:57 Flush - Normal Saline 10 Ml Syringe IVF 10 ml Q12HR BAIRON Administration Thiamine HCl 100 mg 05/21/20 09:00 05/30/20 07:55 Thiamine 100 Mg Tab PO 100 mg DAILY BAIRON Administration Tolvaptan 15 mg 05/25/20 09:00 05/30/20 07:55 Tolvaptan 30 Mg Tab PO 15 mg DAILY BAIRON Administration Hospitalist Exam Vitals: Vital Signs (12 hours) Temp Pulse Pulse Pulse Resp BP BP 05/30/20 12:55 97.4 F L 80 18 05/30/20 12:00 141/65 H 05/30/20 11:17 70 68 131/63 05/30/20 08:00 120/58 L 05/30/20 07:58 97.5 F L 71 18 05/30/20 07:34 71 14 BP BP Pulse Ox 05/30/20 12:55 141/65 H 94 L 05/30/20 12:00 05/30/20 11:17 123/69 05/30/20 08:00 96 05/30/20 07:58 120/58 L 96 05/30/20 07:34 97 Weight Admit Weight 314 lb 11.2 oz Weight 287 lb 3.2 oz General Appearance: NAD, awake alert General - other findings: Limited mobility Eye: anicteric sclera ENT: normocephalic atraumatic Neck: supple Heart: no murmur, irregular Respiratory: CTAB, no wheezes, no rales, no ronchi Gastrointestinal: soft, non-tender, non-distended Extremities - other findings: Large hematoma involving the left lateral thigh and buttocks area Psychiatric: normal affect, normal behavior Hosp A/P (1) Atrial fibrillation with RVR Code(s): I48.91 - UNSPECIFIED ATRIAL FIBRILLATION Status: Acute (2) CHF (congestive heart failure) Code(s): I50.9 - HEART FAILURE, UNSPECIFIED Status: Acute Qualifiers: Heart failure type: systolic Heart failure chronicity: acute on chronic Qualified Code(s): I50.23 - Acute on chronic systolic (congestive) heart failure (3) COPD (chronic obstructive pulmonary disease) with acute bronchitis Code(s): J44.0 - CHR OBSTRUCTIVE PULMON DISEASE WITH (ACUTE) LOWER RESP INFCT; J20.9 - ACUTE BRONCHITIS, UNSPECIFIED Status: Acute (4) COPD exacerbation Code(s): J44.1 - CHRONIC OBSTRUCTIVE PULMONARY DISEASE W (ACUTE) EXACERBATION Status: Acute (5) Tobacco abuse Code(s): Z72.0 - TOBACCO USE Status: Acute (6) Alcohol abuse Code(s): F10.10 - ALCOHOL ABUSE, UNCOMPLICATED Status: Chronic (7) Hyponatremia Code(s): E87.1 - HYPO-OSMOLALITY AND HYPONATREMIA Status: Chronic (8) Fall with injury Code(s): W19.XXXA - UNSPECIFIED FALL, INITIAL ENCOUNTER Status: Acute (9) Hematoma Code(s): T14.8XXA - OTHER INJURY OF UNSPECIFIED BODY REGION, INITIAL ENCOUNTER Status: Acute - Plan Assessment Patient is a 59-year-old male with obesity, chronic alcoholism, HTN, atrial fibrillation and noncompliant on eliquis, COPD who presented to the hospital with his sister for evaluation of bilateral lower extremity edema and discoloration. Doppler study ruled out DVT. He did not appear to be in CHF exacerbation. Work-up in the ER was significant for rapid atrial fibrillation for which he eventually underwent DCCV and PATI. He is currently in sinus rhythm and on Coreg/amiodarone and Eliquis, which is now discontinued after a traumatic fall on 05/27/2020 which led to 10-cm hematoma. Patient has been waiting for rehab for generalized weakness weakness Fall Pelvic hematoma Rapid atrial fibrillation Acute on chronic systolic CHF -2D echo 05/21/2020 with EF of 35- 40% Obesity COPD with bronchitis Hypertension Chronic alcoholism Hyponatremia Plan: Follow-up with repeat CBC this afternoon. Transfuse if drastic drop is noted I have consulted surgery Continue fall precautions Continue Coreg and lisinopril. As per chart review, patient cannot afford Entresto Continue amiodarone and Coreg for rate control as per cardiology Continue telemetry monitoring while in-house Famotidine for GI prophylaxis As needed temazepam for sleep Continue folic acid, thiamine and multivitamins for chronic alcoholism DuoNebs as needed for wheezing and shortness of breath Continue taper dose of steroid PT/OT while in-house. Case management will try and apply for [facility] bed. Patient is currently uninsured
[2020-05-30] MEDS ORDERED: Lisinopril 5 MG TAB PO SCH (16:15)
[2020-05-30 16:56] LABS: #Lymphocytes 0.5 thou/uL (1.20-3.40); #Monocytes 0.7 thou/uL (0.11-0.59); #Neutrophils 7.5 thou/uL (1.40-6.50); %Basophils 0.3 % (0.0-1.0); %Eosinophils 0.5 % (0.0-10.0); %Lymphocytes 5.6 % (21.0-51.0); %Monocytes 7.5 % (0.0-10.0); %Neutrophils 86.1 % (42.0-75.0); Mean Corpuscular HGB CONC 33.7 g/dL (32.0-36.0); Mean Corpuscular Hemoglobin 33.4 pg (27.0-31.0); Mean Corpuscular Volume 99.1 fL (78.0-98.0); Mean Platelet Volume 7.8 fL (7.4-10.4); Platelet Count 209 thou/uL (130-400); RBC Distribution Width 12.8 % (11.5-14.5); Red Blood Cell (RBC) Count 3.31 mill/uL (4.70-6.10); White Blood Cell (WBC) Count 8.7 thou/uL (4.8-10.8)
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
--- NOTE | 2020-05-30 20:06 | PRG ---
DATE OF SERVICE: 05/30/2020 OBJECTIVE: The patient noted with the following vital signs; afebrile, temperature 99.3, pulse 72, respiratory rate of 18, O2 saturations of 95%, blood pressure 142/66. HEENT: Unremarkable. CARDIOVASCULAR: First and second heart sounds were heard. RESPIRATORY: Clear to auscultation. DIGESTIVE SYSTEM: Revealed a benign abdomen. Positive bowel sounds. EXTREMITIES: No peripheral edema. SKIN: No new gross rash. LYMPHATICS: No peripheral lymphadenopathy. IMPRESSION: 1. Hyponatremia in the context . 2. Syndrome of inappropriate antidiuretic hormone secretion. 3. Traumatic hematoma. PLAN: 1. Continue current renal supportive measures. 2. Patient currently on anti-ADH. 3. Begin to deescalate and daily blood draws in this patient to avoid iatrogenic anemia. 4. Further management to be dependent on the clinical course. Job ID: [id number]
[2020-05-31 05:08] LABS: Anion Gap 11 mmol/L (10-20); BUN (Urea Nitrogen) 19 mg/dL (8.4-25.7); Calc. Creatinine Clearance 188 mL/min (70-130); Calcium 8.5 mg/dL (7.8-10.44); Carbon Dioxide 27 mmol/L (23-31); Chloride 99 mmol/L (98-107); Glucose 91 mg/dL (80-115); Potassium 4.4 mmol/L (3.5-5.1); Sodium 133 mmol/L (136-145)
[2020-05-31] MEDS: Folic Acid 1 MG TAB PO SCH (09:05)
[2020-05-31] MEDS: Famotidine 20 MG TAB PO SCH ×2 (09:05→20:15)
[2020-05-31] MEDS: Aspirin Chewable 81 MG TAB PO SCH (09:05)
[2020-05-31] MEDS: Lisinopril 5 MG TAB PO SCH (09:06)
[2020-05-31] MEDS: TOLVAPTAN 30 MG TAB PO SCH (09:07)
[2020-05-31] MEDS: Bupropion 150 MG SR TAB PO SCH ×2 (09:07→20:15)
[2020-05-31] MEDS: Potassium Chloride 20 MEQ TAB PO SCH ×2 (09:08→17:26)
[2020-05-31] MEDS: Amiodarone 200 MG TAB PO SCH ×2 (09:08→20:15)
[2020-05-31] MEDS: Apixaban 5 MG TAB PO SCH ×2 (09:08→20:15)
[2020-05-31] MEDS: Carvedilol 6.25 MG TAB PO SCH ×2 (09:09→17:24)
[2020-05-31] MEDS: Thiamine 100 MG TAB PO SCH (09:09)
[2020-05-31] MEDS: Furosemide 20 MG TAB PO SCH ×2 (09:10→14:39)
[2020-05-31] MEDS: Multivitamin W/ Minerals 1 TAB PO SCH (09:10)
[2020-05-31] MEDS: Acetaminophen 325 MG TAB PO PRN ×2 (09:15→20:15)
[2020-05-31] MEDS: predniSONE 20 MG TAB PO SCH (12:50)
--- NOTE | 2020-05-31 14:28 | PDOC.HOSPP ---
- Subjective Encounter Date: 05/31/20 Subjective: No acute events overnight. Patient was asymptomatic during our encounter. - Objective Vital Signs & Weight: Vital Signs (12 hours) Temp Pulse Resp BP BP BP Pulse Ox 05/31/20 13:50 69 20 95 05/31/20 12:00 98.2 F 69 18 116/58 L 116/58 L 95 05/31/20 09:09 132/61 05/31/20 09:06 65 132/61 05/31/20 08:00 98.4 F 65 18 132/61 132/61 95 05/31/20 07:55 75 18 97 05/31/20 04:05 98 F 81 17 134/68 96 Weight Admit Weight 314 lb 11.2 oz Weight 276 lb 6 oz I&O: 05/30/20 05/31/20 06/01/20 06:59 06:59 06:59 Intake Total 1680 1240 Output Total 3475 2600 Balance -1535 -9470 Result Diagrams: 05/30/20 16:31 05/31/20 03:56 Hospitalist ROS - Medication Medications: Active Medications Generic Name Dose Route Start Last Admin Trade Name Freq PRN Reason Stop Dose Admin Acetaminophen 650 mg 05/19/20 19:59 05/31/20 09:15 Acetaminophen 325 Mg Tab PO 650 mg Q4H PRN Administration Headache/Fever/Mild Pain (1-3) Albuterol/Ipratropium 3 ml 05/20/20 01:00 05/31/20 13:50 Ipratropium/Albuterol Sulfate 3 Ml Neb NEB 3 ml [id number] BAIRON Administration Amiodarone HCl 400 mg 05/24/20 09:00 05/31/20 09:08 Amiodarone 200 Mg Tab PO 400 mg BID BAIRON Administration Apixaban 5 mg 05/19/20 21:00 05/31/20 09:08 Apixaban 5 Mg Tab PO 5 mg BID BAIRON Administration Aspirin 81 mg 05/20/20 09:00 05/31/20 09:05 Aspirin Chewable 81 Mg Tab PO 81 mg DAILY BAIRON Administration Bupropion HCl 150 mg 05/24/20 09:00 05/31/20 09:07 Bupropion 150 Mg Sr Tab PO 150 mg BID BAIRON Administration Carvedilol 6.25 mg 05/29/20 08:00 05/31/20 09:09 Carvedilol 6.25 Mg Tab PO 6.25 mg BID-WM BAIRON Administration Famotidine 20 mg 05/19/20 21:00 05/31/20 09:05 Famotidine 20 Mg Tab PO 20 mg BID BAIRON Administration Folic Acid 1 mg 05/21/20 09:00 05/31/20 09:05 Folic Acid 1 Mg Tab PO 1 mg DAILY BAIRON Administration Furosemide 40 mg 05/20/20 09:00 05/31/20 09:10 Furosemide 20 Mg Tab PO 40 mg 0900,1400 BAIRON Administration Iron/Minerals/Multivitamins 1 tab 05/21/20 09:00 05/31/20 09:10 Multivitamin W/ Minerals 1 Tab PO 1 tab DAILY BAIRON Administration Lisinopril 5 mg 05/31/20 09:00 05/31/20 09:06 Lisinopril 5 Mg Tab PO 5 mg DAILY BAIRON Administration Potassium Chloride 40 meq 05/21/20 17:00 05/31/20 09:08 Potassium Chloride 20 Meq Tab PO 40 meq BID-WM BAIRON Administration Sodium Chloride 10 ml 05/21/20 21:00 05/31/20 09:10 Flush - Normal Saline 10 Ml Syringe IVF 10 ml Q12HR BAIRON Administration Thiamine HCl 100 mg 05/21/20 09:00 05/31/20 09:09 Thiamine 100 Mg Tab PO 100 mg DAILY BAIRON Administration Tolvaptan 15 mg 05/25/20 09:00 05/31/20 09:07 Tolvaptan 30 Mg Tab PO 15 mg DAILY BAIRON Administration Hospitalist Exam Vitals: Vital Signs (12 hours) Temp Pulse Resp BP BP BP Pulse Ox 05/31/20 13:50 69 20 95 05/31/20 12:00 98.2 F 69 18 116/58 L 116/58 L 95 05/31/20 09:09 132/61 05/31/20 09:06 65 132/61 05/31/20 08:00 98.4 F 65 18 132/61 132/61 95 05/31/20 07:55 75 18 97 05/31/20 04:05 98 F 81 17 134/68 96 Weight Admit Weight 314 lb 11.2 oz Weight 276 lb 6 oz General Appearance: NAD, awake alert Eye: anicteric sclera ENT: normocephalic atraumatic Neck: supple Heart: RRR, no murmur, no gallops, no rubs Respiratory: CTAB, no wheezes, no rales, no ronchi Gastrointestinal: soft, non-tender, non-distended Extremities: no edema Skin - other findings: L buttocks and thigh hematoma, B/L LE stasis dermatitis Psychiatric: normal affect, normal behavior Hosp A/P (1) Atrial fibrillation with RVR Code(s): I48.91 - UNSPECIFIED ATRIAL FIBRILLATION Status: Acute (2) CHF (congestive heart failure) Code(s): I50.9 - HEART FAILURE, UNSPECIFIED Status: Acute Qualifiers: Heart failure type: systolic Heart failure chronicity: acute on chronic Qualified Code(s): I50.23 - Acute on chronic systolic (congestive) heart failure (3) COPD (chronic obstructive pulmonary disease) with acute bronchitis Code(s): J44.0 - CHR OBSTRUCTIVE PULMON DISEASE WITH (ACUTE) LOWER RESP INFCT; J20.9 - ACUTE BRONCHITIS, UNSPECIFIED Status: Acute (4) COPD exacerbation Code(s): J44.1 - CHRONIC OBSTRUCTIVE PULMONARY DISEASE W (ACUTE) EXACERBATION Status: Acute (5) Tobacco abuse Code(s): Z72.0 - TOBACCO USE Status: Acute (6) Alcohol abuse Code(s): F10.10 - ALCOHOL ABUSE, UNCOMPLICATED Status: Chronic (7) Hyponatremia Code(s): E87.1 - HYPO-OSMOLALITY AND HYPONATREMIA Status: Chronic (8) Fall with injury Code(s): W19.XXXA - UNSPECIFIED FALL, INITIAL ENCOUNTER Status: Acute (9) Hematoma Code(s): T14.8XXA - OTHER INJURY OF UNSPECIFIED BODY REGION, INITIAL ENCOUNTER Status: Acute - Plan Assessment Patient is a 59-year-old male with obesity, chronic alcoholism, HTN, atrial fibrillation and noncompliant on eliquis, COPD who presented to the hospital with his sister for evaluation of bilateral lower extremity edema and discoloration. Doppler study ruled out DVT. He did not appear to be in CHF exacerbation. Work-up in the ER was significant for rapid atrial fibrillation for which he eventually underwent DCCV and PATI. He is currently in sinus rhythm and on Coreg/amiodarone and Eliquis, which is now discontinued after a traumatic fall on 05/27/2020 which led to 10-cm hematoma, and abductor injury. Surgery deemed him high risk for surgical evacuation of hematoma, or abductor repair. Apixaban has been discontinued. H/H has remained stable. Patient has been w aiting for rehab for generalized weakness weakness Fall Pelvic hematoma Rapid atrial fibrillation Acute on chronic systolic CHF -2D echo 05/21/2020 with EF of 35- 40% Obesity COPD with bronchitis Hypertension Chronic alcoholism Hyponatremia Plan: Continue conservative management of hematoma. Apply warm compress to L buttocks and thigh Follow-up with repeat CBC this afternoon. Transfuse if drastic drop is noted I appreciate recommendations from Surgery Continue fall precautions Continue Coreg and lisinopril. As per chart review, patient cannot afford Entresto Continue amiodarone and Coreg for rate control as per cardiology Poor candidate for systemic anticoagulation due to fall risk Continue telemetry monitoring while in-house Famotidine for GI prophylaxis As needed temazepam for sleep Continue folic acid, thiamine and multivitamins for chronic alcoholism DuoNebs as needed for wheezing and shortness of breath Continue taper dose of steroid PT/OT while in-house. [facility] Patient is currently uninsured
[2020-05-31 15:00] LABS: #Eosinphils 0.1 thou/uL (0.0-0.7); #Lymphocytes 0.8 thou/uL (1.20-3.40); #Monocytes 0.8 thou/uL (0.11-0.59); #Neutrophils 8.5 thou/uL (1.40-6.50); %Basophils 0.4 % (0.0-1.0); %Eosinophils 1.4 % (0.0-10.0); %Lymphocytes 7.7 % (21.0-51.0); %Monocytes 7.4 % (0.0-10.0); %Neutrophils 83.2 % (42.0-75.0); Hemoglobin 11.6 g/dL (14.0-18.0); Mean Corpuscular HGB CONC 33.3 g/dL (32.0-36.0); Mean Corpuscular Hemoglobin 33.2 pg (27.0-31.0); Mean Corpuscular Volume 99.8 fL (78.0-98.0); Mean Platelet Volume 7.7 fL (7.4-10.4); Platelet Count 280 thou/uL (130-400); RBC Distribution Width 12.7 % (11.5-14.5); Red Blood Cell (RBC) Count 3.48 mill/uL (4.70-6.10); White Blood Cell (WBC) Count 10.2 thou/uL (4.8-10.8)
[2020-05-31] MEDS ORDERED: Lorazepam 2 MG/ML VIAL SLOW IVP SCH (22:30)
[2020-06-01 04:41] LABS: Anion Gap 12 mmol/L (10-20); BUN (Urea Nitrogen) 22 mg/dL (8.4-25.7); Calc. Creatinine Clearance 166 mL/min (70-130); Calcium 8.9 mg/dL (7.8-10.44); Carbon Dioxide 29 mmol/L (23-31); Chloride 100 mmol/L (98-107); Glucose 108 mg/dL (80-115); Potassium 5.3 mmol/L (3.5-5.1); Sodium 136 mmol/L (136-145)
[2020-06-01] MEDS: Amiodarone 200 MG TAB PO SCH ×2 (10:03→22:05)
[2020-06-01] MEDS: Famotidine 20 MG TAB PO SCH ×2 (10:03→22:06)
[2020-06-01] MEDS: Thiamine 100 MG TAB PO SCH (10:04)
[2020-06-01] MEDS: Apixaban 5 MG TAB PO SCH ×2 (10:04→22:06)
[2020-06-01] MEDS: Folic Acid 1 MG TAB PO SCH (10:04)
[2020-06-01] MEDS: Bupropion 150 MG SR TAB PO SCH ×2 (10:04→22:06)
[2020-06-01] MEDS: Aspirin Chewable 81 MG TAB PO SCH (10:04)
[2020-06-01] MEDS: Furosemide 20 MG TAB PO SCH ×2 (10:04→15:44)
[2020-06-01] MEDS: TOLVAPTAN 30 MG TAB PO SCH (10:05)
[2020-06-01] MEDS: Lisinopril 5 MG TAB PO SCH (10:05)
[2020-06-01] MEDS: Carvedilol 6.25 MG TAB PO SCH ×2 (10:06→18:04)
[2020-06-01] MEDS: Multivitamin W/ Minerals 1 TAB PO SCH (10:06)
[2020-06-01] MEDS: Potassium Chloride 20 MEQ TAB PO SCH ×2 (10:14→18:04)
[2020-06-01] MEDS: predniSONE 5 MG TAB PO SCH (12:49)
--- NOTE | 2020-06-01 15:28 | PDOC.HOSPP ---
- Subjective Encounter Date: 06/01/20 Subjective: No acute events overnight. Patient was resting in bed comfortably. Nurses present providing bedside care. Was in no acute cardiopulmonary distress. - Objective Vital Signs & Weight: Vital Signs (12 hours) Temp Pulse Pulse Pulse Resp BP BP 06/01/20 12:00 97.5 F L 80 16 06/01/20 11:55 80 76 125/72 06/01/20 10:06 132/67 06/01/20 10:05 65 132/67 06/01/20 08:00 97.8 F 65 16 06/01/20 04:15 97.4 F L 65 18 135/68 BP BP Pulse Ox Pulse Ox Pulse Ox 06/01/20 12:00 125/72 98 06/01/20 11:55 143/71 H 100 99 06/01/20 10:06 06/01/20 10:05 06/01/20 08:00 132/67 100 06/01/20 04:15 135/65 98 Weight Admit Weight 314 lb 11.2 oz Weight 279 lb 6.4 oz I&O: 05/31/20 06/01/20 06/02/20 06:59 06:59 06:59 Intake Total 1240 1450 Output Total 2600 2150 350 Balance -1360 -700 -350 Result Diagrams: 05/31/20 14:46 06/01/20 04:01 Hospitalist ROS - Medication Medications: Active Medications Generic Name Dose Route Start Last Admin Trade Name Freq PRN Reason Stop Dose Admin Acetaminophen 650 mg 05/19/20 19:59 05/31/20 20:15 Acetaminophen 325 Mg Tab PO 650 mg Q4H PRN Administration Headache/Fever/Mild Pain (1-3) Albuterol/Ipratropium 3 ml 05/20/20 01:00 06/01/20 14:33 Ipratropium/Albuterol Sulfate 3 Ml Neb NEB Not Given [id number] BAIRON Amiodarone HCl 400 mg 05/24/20 09:00 06/01/20 10:03 Amiodarone 200 Mg Tab PO 400 mg BID BAIRON Administration Apixaban 5 mg 05/19/20 21:00 06/01/20 10:04 Apixaban 5 Mg Tab PO 5 mg BID BAIRON Administration Aspirin 81 mg 05/20/20 09:00 06/01/20 10:04 Aspirin Chewable 81 Mg Tab PO 81 mg DAILY BAIRON Administration Bupropion HCl 150 mg 05/24/20 09:00 06/01/20 10:04 Bupropion 150 Mg Sr Tab PO 150 mg BID BAIRON Administration Carvedilol 6.25 mg 05/29/20 08:00 06/01/20 10:06 Carvedilol 6.25 Mg Tab PO 6.25 mg BID-WM BAIRON Administration Famotidine 20 mg 05/19/20 21:00 06/01/20 10:03 Famotidine 20 Mg Tab PO 20 mg BID BAIRON Administration Folic Acid 1 mg 05/21/20 09:00 06/01/20 10:04 Folic Acid 1 Mg Tab PO 1 mg DAILY BAIRON Administration Furosemide 40 mg 05/20/20 09:00 06/01/20 10:04 Furosemide 20 Mg Tab PO 40 mg 0900,1400 BAIRON Administration Iron/Minerals/Multivitamins 1 tab 05/21/20 09:00 06/01/20 10:06 Multivitamin W/ Minerals 1 Tab PO 1 tab DAILY BAIRON Administration Lisinopril 5 mg 05/31/20 09:00 06/01/20 10:05 Lisinopril 5 Mg Tab PO 5 mg DAILY BAIRON Administration Potassium Chloride 40 meq 05/21/20 17:00 06/01/20 10:14 Potassium Chloride 20 Meq Tab PO Not Given BID-WM BAIRON Prednisone 10 mg 06/01/20 12:00 06/01/20 12:49 Prednisone 5 Mg Tab PO 06/03/20 12:01 10 mg 1200 BAIRON Administration Sodium Chloride 10 ml 05/21/20 21:00 06/01/20 10:06 Flush - Normal Saline 10 Ml Syringe IVF 10 ml Q12HR BAIRON Administration Temazepam 15 mg 05/23/20 12:37 05/31/20 20:15 Temazepam 15 Mg Cap PO 15 mg HSPRN PRN Administration Insomnia Thiamine HCl 100 mg 05/21/20 09:00 06/01/20 10:04 Thiamine 100 Mg Tab PO 100 mg DAILY BAIRON Administration Tolvaptan 15 mg 05/25/20 09:00 06/01/20 10:05 Tolvaptan 30 Mg Tab PO 15 mg DAILY BAIRON Administration Hospitalist Exam Vitals: Vital Signs (12 hours) Temp Pulse Pulse Pulse Resp BP BP 06/01/20 12:00 97.5 F L 80 16 06/01/20 11:55 80 76 125/72 06/01/20 10:06 132/67 06/01/20 10:05 65 132/67 06/01/20 08:00 97.8 F 65 16 06/01/20 04:15 97.4 F L 65 18 135/68 BP BP Pulse Ox Pulse Ox Pulse Ox 06/01/20 12:00 125/72 98 06/01/20 11:55 143/71 H 100 99 06/01/20 10:06 06/01/20 10:05 06/01/20 08:00 132/67 100 06/01/20 04:15 135/65 98 Weight Admit Weight 314 lb 11.2 oz Weight 279 lb 6.4 oz General Appearance: NAD, awake alert General - other findings: Obese and deconditioned Eye: anicteric sclera ENT: normocephalic atraumatic Neck: supple Heart: no murmur, irregular Respiratory: CTAB, no wheezes, no rales, no ronchi Gastrointestinal: soft, non-tender, non-distended Extremities: no edema Skin - other findings: Bilateral stasis dermatitis, hematoma of the left buttocks and left thigh Musculoskeletal: generalized weakness Psychiatric: normal affect, normal behavior Hosp A/P (1) Atrial fibrillation with RVR Code(s): I48.91 - UNSPECIFIED ATRIAL FIBRILLATION Status: Acute (2) CHF (congestive heart failure) Code(s): I50.9 - HEART FAILURE, UNSPECIFIED Status: Acute Qualifiers: Heart failure type: systolic Heart failure chronicity: acute on chronic Qualified Code(s): I50.23 - Acute on chronic systolic (congestive) heart failure (3) COPD (chronic obstructive pulmonary disease) with acute bronchitis Code(s): J44.0 - CHR OBSTRUCTIVE PULMON DISEASE WITH (ACUTE) LOWER RESP INFCT; J20.9 - ACUTE BRONCHITIS, UNSPECIFIED Status: Acute (4) COPD exacerbation Code(s): J44.1 - CHRONIC OBSTRUCTIVE PULMONARY DISEASE W (ACUTE) EXACERBATION Status: Acute (5) Tobacco abuse Code(s): Z72.0 - TOBACCO USE Status: Acute (6) Alcohol abuse Code(s): F10.10 - ALCOHOL ABUSE, UNCOMPLICATED Status: Chronic (7) Hyponatremia Code(s): E87.1 - HYPO-OSMOLALITY AND HYPONATREMIA Status: Chronic (8) Fall with injury Code(s): W19.XXXA - UNSPECIFIED FALL, INITIAL ENCOUNTER Status: Acute (9) Hematoma Code(s): T14.8XXA - OTHER INJURY OF UNSPECIFIED BODY REGION, INITIAL ENCOUNTER Status: Acute - Plan Assessment Patient is a 59-year-old male with obesity, chronic alcoholism, HTN, atrial fibrillation and noncompliant on eliquis, COPD who presented to the hospital with his sister for evaluation of bilateral lower extremity edema and discoloration. Doppler study ruled out DVT. He did not appear to be in CHF exacerbation. Rapid A. fib in the ER, status post PATI and DCCV and was placed on Coreg/amiodarone and Eliquis. Eliquis discontinued after a traumatic fall on 05/27/2020 resulting in large hematoma of left buttocks and thigh, and abductor injury. Surgery deemed him high risk for surgical evacuation of hematoma, or abductor repair. No transfusion given as H/H remained stable. Patient has been waiting for rehab for generalized weakness. On 06/01, I learned that patient is willing to accept private pay. patient care director is to review his case and accept him into rehab. Is currently awaiting for bed availability. Fall Physical deconditioning Pelvic hematoma Rapid atrial fibrillation Chronic systolic CHF -2D echo 05/21/2020 with EF of 35- 40% Obesity COPD with bronchitis Hypertension Chronic alcoholism Hyponatremia Plan: Discharge to rehab without delay when bed becomes available Continue conservative management of hematoma. Apply warm compress to L buttocks and thigh Continue fall precautions Continue Coreg and lisinopril. As per chart review, patient cannot afford Entresto Continue amiodarone and Coreg for rate control as per cardiology Poor candidate for systemic anticoagulation due to fall risk p Continue telemetry monitoring while in-house Famotidine for GI prophylaxis As needed temazepam for sleep Continue folic acid, thiamine and multivitamins for chronic alcoholism DuoNebs as needed for wheezing and shortness of breath Continue taper dose of steroid PT/OT while in-house. Dissipating discharge to rehab over the weekend or Thursday.
--- NOTE | 2020-06-01 17:13 | PRG ---
DATE OF SERVICE: 06/01/2020 OBJECTIVE: VITAL SIGNS: The patient noted with the following vital signs; afebrile, temperature 97.9, pulse 74, respiratory rate of 18, and O2 saturations are 98%. HEENT: Unremarkable CARDIOVASCULAR SYSTEM: First and second heart sounds were heard. RESPIRATORY SYSTEM: Clear to auscultation. DIGESTIVE SYSTEM: Revealed a benign abdomen. SKIN: Showed evidence of bruise from the recent fall/hematoma. LABORATORY INVESTIGATION: Significant for sodium of 136 with potassium of 5.3. IMPRESSION: 1. Hyponatremia, which seems to have resolved . 2. Mild hyperkalemia, likely from the hemolysis of the hematoma. PLAN: 1. Continue to monitor the potassium level and treat accordingly. 2. Further management to be dependent on the clinical course. Job ID: [id number]
[2020-06-02 05:05] LABS: Anion Gap 11 mmol/L (10-20); BUN (Urea Nitrogen) 21 mg/dL (8.4-25.7); Calc. Creatinine Clearance 174 mL/min (70-130); Calcium 8.4 mg/dL (7.8-10.44); Carbon Dioxide 27 mmol/L (23-31); Chloride 100 mmol/L (98-107); Glucose 91 mg/dL (80-115); Potassium 4.1 mmol/L (3.5-5.1); Sodium 134 mmol/L (136-145)
[2020-06-02] MEDS: Multivitamin W/ Minerals 1 TAB PO SCH (09:03)
[2020-06-02] MEDS: Aspirin Chewable 81 MG TAB PO SCH (09:03)
[2020-06-02] MEDS: Folic Acid 1 MG TAB PO SCH (09:03)
[2020-06-02] MEDS: Thiamine 100 MG TAB PO SCH (09:03)
[2020-06-02] MEDS: Amiodarone 200 MG TAB PO SCH ×2 (09:03→20:29)
[2020-06-02] MEDS: Bupropion 150 MG SR TAB PO SCH ×2 (09:04→20:29)
[2020-06-02] MEDS: Lisinopril 5 MG TAB PO SCH (09:04)
[2020-06-02] MEDS: Famotidine 20 MG TAB PO SCH ×2 (09:04→20:29)
[2020-06-02] MEDS: Carvedilol 6.25 MG TAB PO SCH ×2 (09:04→17:57)
[2020-06-02] MEDS: Apixaban 5 MG TAB PO SCH ×2 (09:04→20:30)
[2020-06-02] MEDS: TOLVAPTAN 30 MG TAB PO SCH (09:04)
[2020-06-02] MEDS: Potassium Chloride 20 MEQ TAB PO SCH ×2 (09:10→16:52)
[2020-06-02] MEDS: Furosemide 20 MG TAB PO SCH ×2 (09:11→15:21)
--- NOTE | 2020-06-02 13:23 | PDOC.HOSPP ---
- Subjective Encounter Date: 06/02/20 Subjective: Patient currently has no complaint. He remains in sinus rhythm. He wants to go to rehab as soon as possible. No issues overnight. Vitals are stable. - Objective Vital Signs & Weight: Vital Signs (12 hours) Temp Pulse Resp BP BP Pulse Ox 06/02/20 08:55 98.8 F 83 16 136/78 96 06/02/20 08:29 98.8 F 90 20 206/109 H 98 06/02/20 04:00 98.4 F 75 24 H 124/63 96 Weight Admit Weight 314 lb 11.2 oz Weight 273 lb 8 oz I&O: 06/01/20 06/02/20 06/03/20 06:59 06:59 06:59 Intake Total 1450 1740 Output Total 2150 2100 Balance -700 -360 Result Diagrams: 05/31/20 14:46 06/02/20 04:15 Hospitalist ROS - Medication Medications: Active Medications Generic Name Dose Route Start Last Admin Trade Name Freq PRN Reason Stop Dose Admin Acetaminophen 650 mg 05/19/20 19:59 05/31/20 20:15 Acetaminophen 325 Mg Tab PO 650 mg Q4H PRN Administration Headache/Fever/Mild Pain (1-3) Albuterol/Ipratropium 3 ml 05/20/20 01:00 06/02/20 08:42 Ipratropium/Albuterol Sulfate 3 Ml Neb NEB Not Given [id number] [facility] Amiodarone HCl 400 mg 05/24/20 09:00 06/02/20 09:03 Amiodarone 200 Mg Tab PO 400 mg BID [facility] Administration Apixaban 5 mg 05/19/20 21:00 06/02/20 09:04 Apixaban 5 Mg Tab PO 5 mg BID [facility] Administration Aspirin 81 mg 05/20/20 09:00 06/02/20 09:03 Aspirin Chewable 81 Mg Tab PO 81 mg DAILY [facility] Administration Bupropion HCl 150 mg 05/24/20 09:00 06/02/20 09:04 Bupropion 150 Mg Sr Tab PO 150 mg BID [facility] Administration Carvedilol 6.25 mg 05/29/20 08:00 06/02/20 09:04 Carvedilol 6.25 Mg Tab PO 6.25 mg BID- [facility] Administration Famotidine 20 mg 05/19/20 21:00 06/02/20 09:04 Famotidine 20 Mg Tab PO 20 mg BID [facility] Administration Folic Acid 1 mg 05/21/20 09:00 06/02/20 09:03 Folic Acid 1 Mg Tab PO 1 mg DAILY [facility] Administration Furosemide 40 mg 05/20/20 09:00 06/02/20 09:11 Furosemide 20 Mg Tab PO Not Given 0900,1400 [facility] Iron/Minerals/Multivitamins 1 tab 05/21/20 09:00 06/02/20 09:03 Multivitamin W/ Minerals 1 Tab PO 1 tab DAILY [facility] Administration Lisinopril 5 mg 05/31/20 09:00 06/02/20 09:04 Lisinopril 5 Mg Tab PO 5 mg DAILY [facility] Administration Potassium Chloride 40 meq 05/21/20 17:00 06/02/20 09:10 Potassium Chloride 20 Meq Tab PO Not Given BID- [facility] Prednisone 10 mg 06/01/20 12:00 06/01/20 12:49 Prednisone 5 Mg Tab PO 06/03/20 12:01 10 mg 1200 [facility] Administration Sodium Chloride 10 ml 05/21/20 21:00 06/02/20 09:05 Flush - Normal Saline 10 Ml Syringe IVF 10 ml Q12HR [facility] Administration Thiamine HCl 100 mg 05/21/20 09:00 06/02/20 09:03 Thiamine 100 Mg Tab PO 100 mg DAILY [facility] Administration Tolvaptan 15 mg 05/25/20 09:00 06/02/20 09:04 Tolvaptan 30 Mg Tab PO 15 mg DAILY [facility] Administration Hospitalist Exam Vitals: Vital Signs (12 hours) Temp Pulse Resp BP BP Pulse Ox 06/02/20 08:55 98.8 F 83 16 136/78 96 06/02/20 08:29 98.8 F 90 20 206/109 H 98 06/02/20 04:00 98.4 F 75 24 H 124/63 96 Weight Admit Weight 314 lb 11.2 oz Weight 273 lb 8 oz General Appearance: NAD, awake alert Eye: PERRL, anicteric sclera ENT: moist mucosa Neck: supple, no JVD Heart: RRR, no murmur Respiratory: CTAB, no wheezes, no rales Gastrointestinal: soft, non-tender, non-distended, normal bowel sounds Extremities: no cyanosis Skin - other findings: Bilateral lower extremity xerosis Neurological: cranial nerve grossly intact, no focal deficits Musculoskeletal: normal tone Psychiatric: normal affect, normal behavior Hosp A/P (1) SIADH (syndrome of inappropriate ADH production) Status: Acute (2) Atrial fibrillation Code(s): I48.91 - UNSPECIFIED ATRIAL FIBRILLATION Status: Acute (3) COPD (chronic obstructive pulmonary disease) with acute bronchitis Code(s): J44.0 - CHR OBSTRUCTIVE PULMON DISEASE WITH (ACUTE) LOWER RESP INFCT; J20.9 - ACUTE BRONCHITIS, UNSPECIFIED Status: Acute (4) Fall with injury Code(s): W19.XXXA - UNSPECIFIED FALL, INITIAL ENCOUNTER Status: Acute (5) Hematoma Code(s): T14.8XXA - OTHER INJURY OF UNSPECIFIED BODY REGION, INITIAL ENCOUNTER Status: Acute (6) Alcohol abuse Code(s): F10.10 - ALCOHOL ABUSE, UNCOMPLICATED Status: Chronic (7) Hyponatremia Code(s): E87.1 - HYPO-OSMOLALITY AND HYPONATREMIA Status: Chronic - Plan Fall Physical deconditioning Pelvic hematoma Rapid atrial fibrillation Chronic systolic CHF -2D echo 05/21/2020 with EF of 35- 40% Obesity COPD with bronchitis Hypertension Chronic alcoholism Hyponatremia SIADH Plan: Patient is waiting for discharge to rehab. Continue conservative management of hematoma per general surgery. Apply warm compress to L buttocks and thigh Continue fall precautions. Patient seen by cardiology and placed on Coreg and lisinopril. As per chart review, patient cannot afford Entresto Continue amiodarone and Coreg for rate control as per cardiology Poor candidate for systemic anticoagulation due to fall risk. Patient may tolerate anticoagulation in a supervised environment. He will be discharged with [facility] if he ends up going to rehab. Continue telemetry monitoring while in-house Famotidine for GI prophylaxis As needed temazepam for sleep Continue folic acid, thiamine and multivitamins for chronic alcoholism DuoNebs as needed for wheezing and shortness of breath Continue steroid taper for COPD. He is on tolvaptan for SIADH. Sodium level is slightly low but stable. Continue PT.
[2020-06-02] MEDS: predniSONE 5 MG TAB PO SCH (15:21)
--- NOTE | 2020-06-02 18:20 | EKG ---
Test Reason : Blood Pressure : / mmHG Vent. Rate : 131 BPM Atrial Rate : 144 BPM P-R Int : 000 ms QRS Dur : 132 ms QT Int : 358 ms P-R-T Axes : 000 076 024 degrees QTc Int : 528 ms Poor data quality, interpretation may be adversely affected Atrial fibrillation with rapid ventricular response Right bundle branch block Abnormal ECG Confirmed by YAMILEX PIZARRO ([id number]), editor book ELIN GOODE ([id number]) on 06/02/2020 6:19:55 PM Referred By: Confirmed By:YAMILEX Gutierrez
[2020-06-03 02:14] LABS: SARS-CoV-2 PCR by NAA Not Detected (NotDetected)
[2020-06-03 05:06] LABS: Anion Gap 14 mmol/L (10-20); BUN (Urea Nitrogen) 20 mg/dL (8.4-25.7); Calc. Creatinine Clearance 197 mL/min (70-130); Calcium 8.4 mg/dL (7.8-10.44); Carbon Dioxide 22 mmol/L (23-31); Chloride 100 mmol/L (98-107); Glucose 85 mg/dL (80-115); Potassium 4.1 mmol/L (3.5-5.1); Sodium 132 mmol/L (136-145)
--- NOTE | 2020-06-03 08:19 | PDOC.DS.DS ---
Provider Date of Admission: 05/19/20 19:52 Date of Discharge: 06/03/20 Admitting Provider: Shyanne Cardona MD Primary Care Physician: Unknown Course Hospital Course: 59-year-old man with a history of atrial fibrillation, hypertension, history of medication noncompliance, previously on Eliquis but stopped taking it because of loss of insurance presented to the emergency department with a complaint of increasing swelling and discoloration of lower legs. Patient states that his symptoms have been ongoing for months. He also reported exertional dyspnea. Patient has been drinking beer daily, also been drinking a lot of water. He was noted to be in atrial fibrillation with a rate up to 130 on presentation. Patient also hyponatremic with a sodium level of 125. He was given a dose of digoxin which brought his heart rate down to the 100s. Patient was admitted for further management. Patient admitted to the medical floor, venous Doppler of lower extremities was negative for DVT. Patient was seen by cardiology, PATI was done and direct current cardioversion was performed. Patient successfully converted to sinus rhythm. He was restarted on Coreg, amiodarone and Eliquis. He had a traumatic fall on 05/27/2020 resulting in large hematoma of the left buttocks and thigh. General surgery was consulted who deemed patient high risk for surgical evacuation of the hematoma or abductor repair. His hemoglobin was stable, patient did not require any transfusion. Patient was deconditioned and generally weak. He was seen by physical therapy and rehab recommended. Nephrology was consulted for hyponatremia. Patient was diagnosed with SIADH and treated with tolvaptan. His sodium level improved to low 130s. Tolvaptan is discontinued on discharge. Free water restriction up to 1200 mls per day is recommended to treat the SIADH. Patient also discharged with amiodarone 400 mg daily. He will need to follow-up with cardiology-Dr. Carrasco within a couple of weeks. He will also need to follow-up with nephrology-Dr. Coburn within 1 month. Resuscitation Status: 05/19/20 19:59 Resuscitation Status Routine Resuscitation Status: FULL: Full Resuscitation Discussed with: patient Lab Results: 05/31/20 14:46 06/03/20 04:04 Abnormal Lab Results - Last 48 hrs 06/02/20 04:15: Sodium 134 L 06/03/20 04:04: Sodium 132 L, Carbon Dioxide 22 L, Creatinine 0.69 L Vitals: Vital Signs (12 hours) Temp Pulse Resp BP Pulse Ox 06/03/20 04:00 97.6 F 64 20 148/75 H 99 06/03/20 00:00 81 121/70 Weight Admit Weight 314 lb 11.2 oz Weight 259 lb 12.8 oz Physical Exam: The patient was seen and examined on the day of discharge. General Appearance: NAD, awake alert Eye: anicteric sclera ENT: no oropharyngeal lesions Neck: supple, no JVD Respiratory: CTAB, no wheezes, no rales Cardiovascular: RRR Gastrointestinal: soft, non-tender, non-distended Extremities: no cyanosis Extremities - other findings: Bilateral lower extremity xerosis. Neurological: cranial nerve grossly intact, no focal deficits Musculoskeletal: normal tone, normal strength PSYCH: normal affect, normal behavior, A&O x 3 Problem (1) SIADH (syndrome of inappropriate ADH production) Status: Acute (2) Atrial fibrillation Code(s): I48.91 - UNSPECIFIED ATRIAL FIBRILLATION Status: Acute (3) COPD (chronic obstructive pulmonary disease) with acute bronchitis Code(s): J44.0 - CHR OBSTRUCTIVE PULMON DISEASE WITH (ACUTE) LOWER RESP INFCT; J20.9 - ACUTE BRONCHITIS, UNSPECIFIED Status: Acute (4) Fall with injury Code(s): W19.XXXA - UNSPECIFIED FALL, INITIAL ENCOUNTER Status: Acute (5) Hematoma Code(s): T14.8XXA - OTHER INJURY OF UNSPECIFIED BODY REGION, INITIAL ENCOUNTER Status: Acute (6) Alcohol abuse Code(s): F10.10 - ALCOHOL ABUSE, UNCOMPLICATED Status: Chronic (7) Hyponatremia Code(s): E87.1 - HYPO-OSMOLALITY AND HYPONATREMIA Status: Chronic Plan Prescriptions: Amiodarone [Cordarone] 400 mg PO DAILY #60 tab Folic Acid [Folvite] 1 mg PO DAILY #30 tab Multivitamin W/ Minerals [Theragran M] 1 tab PO DAILY #30 tab Thiamine 100 mg PO DAILY #30 tab BuPROPion SR [Wellbutrin SR] 150 mg PO BID #60 tab Lisinopril [Zestril] 5 mg PO DAILY #30 tab Home Medications: Medication Instructions Recorded Confirmed Type Apixaban [Eliquis] 5 mg PO BID 05/20/20 05/20/20 History BuPROPion SR [Wellbutrin SR] 150 mg PO BID #60 tab 06/02/20 Rx Carvedilol [Coreg] 6.25 mg PO BID-WM tab 06/02/20 Rx Folic Acid [Folvite] 1 mg PO DAILY #30 tab 06/02/20 Rx Lisinopril [Zestril] 5 mg PO DAILY #30 tab 06/02/20 Rx Multivitamin W/ Minerals 1 tab PO DAILY #30 tab 06/02/20 Rx [Theragran M] Thiamine 100 mg PO DAILY #30 tab 06/02/20 Rx Amiodarone [Cordarone] 400 mg PO DAILY #60 tab 06/03/20 Rx Allergies: grass pollen Allergy (Verified 05/20/20 15:40) Activity:: Other (Fall precautions) Referrals: [facility], [facility] [Other] (Inpatient rehab placement.) Kalyani Mendoza MD [Active] - (Accepting pcp at the [facility].) Unknown,Unknown [Primary Care Provider] - Disposition: REHABILITATION INPATIENT Quality CORE MEASURES:: N/A
[2020-06-03] MEDS: Folic Acid 1 MG TAB PO SCH (08:46)
[2020-06-03] MEDS: Thiamine 100 MG TAB PO SCH (08:46)
[2020-06-03] MEDS: Multivitamin W/ Minerals 1 TAB PO SCH (08:46)
[2020-06-03] MEDS: TOLVAPTAN 30 MG TAB PO SCH (08:46)
[2020-06-03] MEDS: Carvedilol 6.25 MG TAB PO SCH (08:46)
[2020-06-03] MEDS: Lisinopril 5 MG TAB PO SCH (08:47)
[2020-06-03] MEDS: Potassium Chloride 20 MEQ TAB PO SCH (08:47)
[2020-06-03] MEDS: Amiodarone 200 MG TAB PO SCH (08:47)
[2020-06-03] MEDS: Famotidine 20 MG TAB PO SCH (08:47)
[2020-06-03] MEDS: Apixaban 5 MG TAB PO SCH (08:47)
[2020-06-03] MEDS: Bupropion 150 MG SR TAB PO SCH (08:47)
[2020-06-03] MEDS: Aspirin Chewable 81 MG TAB PO SCH (08:47)
[2020-06-03] MEDS: Furosemide 20 MG TAB PO SCH ×2 (08:48→16:20)
[2020-06-03] MEDS: predniSONE 5 MG TAB PO SCH (11:13)
[2020-06-03 12:06] VITALS: BP 147/68; TEMP 98.6
[2020-06-04] MEDS ORDERED: predniSONE 5 MG TAB PO SCH (12:00)
== END 2020-06-03 14:10 | DRG 643 ==
LOC: ERS 17:44 → ERHOLD 19:52 → 2NO 05-20 15:33
PROVIDERS: ADMIT Internal Medicine; ATTEND Internal Medicine
PROC: 5A2204Z Restoration of Cardiac Rhythm, Single (ICD-10-PCS; principal; 2020-05-24)
PROC: B24BZZ4 Ultrasonography of Heart with Aorta, Transesophageal (ICD-10-PCS; 2020-05-24)
DX: E22.2 Syndrome of inappropriate secretion of antidiuretic hormone (principal); I50.43 Acute on chronic combined systolic (congestive) and diastolic (congestive) heart failure; J44.0 Chronic obstructive pulmonary disease with (acute) lower respiratory infection; L03.116 Cellulitis of left lower limb; J44.1 Chronic obstructive pulmonary disease with (acute) exacerbation; I42.9 Cardiomyopathy, unspecified; I11.0 Hypertensive heart disease with heart failure; I95.9 Hypotension, unspecified; I48.0 Paroxysmal atrial fibrillation; Z20.822 Contact with and (suspected) exposure to COVID-19; J20.9 Acute bronchitis, unspecified; I08.3 Combined rheumatic disorders of mitral, aortic and tricuspid valves; F17.210 Nicotine dependence, cigarettes, uncomplicated; F10.20 Alcohol dependence, uncomplicated; E66.9 Obesity, unspecified; T45.516A Underdosing of anticoagulants, initial encounter; S70.12XA Contusion of left thigh, initial encounter; W19.XXXA Unspecified fall, initial encounter; Y92.239 Unspecified place in hospital as the place of occurrence of the external cause; S30.0XXA Contusion of lower back and pelvis, initial encounter; E87.5 Hyperkalemia; Z68.33 Body mass index [BMI] 33.0-33.9, adult; Z91.14 Patient's other noncompliance with medication regimen; Z89.022 Acquired absence of left finger(s); Z83.6 Family history of other diseases of the respiratory system; Z79.899 Other long term (current) drug therapy; Z79.01 Long term (current) use of anticoagulants; Z91.120 Patient's intentional underdosing of medication regimen due to financial hardship
CPT/HCPCS: 36415; 70450; 71045; 72192; 80048; 80053; 81001; 82550; 83735; 83880; 83930; 83935; 84300; 84443; 84484; 85007; 85025; 85027; 85610; 85730; 87635; 92960; 93005; 93010; 93306; 93312; 94640; 96374; J0282; J0696; J1160; J1940; J2060; J2704; J3475; J3490; J7070; J7512; J7620; U0003; U0005

== ENCOUNTER 2024-01-11 10:15 | Outpatient (CLI) | payer MEDICARE | END 2024-01-11 10:16 | disposition home or self-care (01) | LOC: SCSRAD 10:15 | PROVIDERS: ATTEND Family Medicine | DX: M79.675 Pain in left toe(s) (principal); S92.402A Displaced unspecified fracture of left great toe, initial encounter for closed fracture; E05.90 Thyrotoxicosis, unspecified without thyrotoxic crisis or storm | CPT/HCPCS: 36415; 84436; 84443; 84480 ==